=== PATIENT | male | born 1995 | race Caucasian/White ===

== ENCOUNTER 2019-08-13 07:47 | Inpatient (IN) | payer MEDICAID ==
[~2019-08-13] VITALS: Ht 162.6 cm; Wt 43.5 kg
--- NOTE | 2019-08-13 08:07 | NUR ---
Patient Came to [facility] EMS from skill facility c/c Seizure he is non verbal noted trach RA ,contracted bilateral upper and lower extremities ,suction as needed ,padded side rails ,
[2019-08-13 08:28] LABS: BASOPHILS # (AUTO) 0.1 /CMM (0.0-0.2); BASOPHILS % (AUTO) 0.3 % (0.0-2.0); EOSINOPHILS % (AUTO) 0.1 % (0.0-6.0); HEMATOCRIT 46 % (39-51); HEMOGLOBIN 15.4 g/dL (13.5-17.5); LYMPHOCYTES # (AUTO) 1.4 /CMM (0.8-4.8); MEAN CORPUSCULAR HGB CONC 34 g/dl (31.0-36.0); MEAN CORPUSCULAR VOLUME 94 fL (80-96); MONOCYTES # (AUTO) 0.6 /CMM (0.1-1.30); MONOCYTES % (AUTO) 2.6 % (2.0-12.0); NEUTROPHILS # (AUTO) 21.5 /CMM (1.8-8.9); PLATELET COUNT (AUTO) 620 /CMM (150-450); RED BLOOD CELL COUNT(AUTO) 4.87 MIL/uL (4.5-6.0); WHITE BLOOD COUNT (AUTO) 23.6 K/uL (4.3-11.0)
[2019-08-13] MEDS ORDERED: LORAZEPAM INJ 2 MG/ML VIAL IV ONE ×2 (08:30→11:00)
[2019-08-13] MEDS ORDERED: LORAZEPAM INJ 2 MG/ML VIAL ONE ×3 (08:30→12:12)
[2019-08-13 08:32] LABS: CALCIUM, SERUM 10.4 mg/dL (8.5-10.1); CREATININE 0.7 mg/dL (0.6-1.3); POTASSIUM 3.9 mmol/L (3.5-5.1)
--- NOTE | 2019-08-13 08:40 | NUR ---
Patient awake moaning noted agitation unable to do EKG MD aware order
--- NOTE | 2019-08-13 08:47 | NUR ---
Pt awake, nonverbal, remains on room air, given ativan IV push per order for agitation, pt remains on padded rails for seizure precaution, noted drooling, suctioned as needed.
--- NOTE | 2019-08-13 09:21 | NUR ---
Pt noted with gtube, placed secured dressing to prevent pulling out, noted gastric content. no seizure activity at this time.
[2019-08-13] MEDS ORDERED: IV NS 0.9% 1,000 ML BAG IV ONE ×2 (09:30→13:30)
--- NOTE | 2019-08-13 10:35 | NUR ---
Dr. Ramirez in the unit at this time, relayed to that patient has been tachy since he arrived, 140-160's. Dr. Ramirez with no new order at this time, and said continue to monitor. Will continue to monitor patient
--- NOTE | 2019-08-13 10:54 | NUR ---
Pt awake noted, right arm movement noted pulled out IV, pulled all monitors, and Dr. Bustamante made aware with orders
--- NOTE | 2019-08-13 11:59 | NUR ---
Patient pulled his heplock ,noted agitation MD aware ,vitals taken and filed HR 140 MD aware with order
[2019-08-13] MEDS ORDERED: LORAZEPAM INJ 2 MG/ML VIAL IM ONE (12:00)
--- NOTE | 2019-08-13 13:14 | NUR ---
Removed LAC heplock noted cath intact no edema ,no redness
--- NOTE | 2019-08-13 13:25 | NUR ---
CALLED CYNTHIA, BARBARA WOODY PAGED
[2019-08-13 13:28] LABS: ALBUMIN 4.4 g/dL (3.4-5.0); BILIRUBIN,TOTAL 0.1 mg/dL (0.2-1.0); TOTAL PROTEIN, SERUM 9.9 g/dL (6.4-8.2)
[2019-08-13] MEDS ORDERED: METO25TA6 GT (13:30)
[2019-08-13] MEDS ORDERED: CHOL100040 GT (13:30)
[2019-08-13] MEDS ORDERED: MAGN400O6 GT (13:30)
[2019-08-13] MEDS ORDERED: ACET-868 GT (13:30)
[2019-08-13] MEDS ORDERED: LOPE2CAP40 GT (13:30)
[2019-08-13] MEDS ORDERED: CALC1POW GT (13:30)
[2019-08-13] MEDS ORDERED: LEVE500T9 GT (13:30)
[2019-08-13] MEDS ORDERED: ONDA4TAB5 GT (13:30)
[2019-08-13] MEDS ORDERED: OXCA600T5 GT (13:30)
[2019-08-13] MEDS ORDERED: POTA20TA83 GT (13:30)
[2019-08-13] MEDS ORDERED: MOTRIN (13:30)
[2019-08-13] MEDS ORDERED: ERYT200S4 GT (13:42)
[2019-08-13] MEDS ORDERED: OMEP20TA5 GT (13:42)
[2019-08-13] MEDS ORDERED: NUT.237L63 GT (13:42)
[2019-08-13] MEDS ORDERED: IPRA0.2S9 IH (13:42)
[2019-08-13] MEDS ORDERED: BISA10SU61 RC (13:42)
[2019-08-13] MEDS ORDERED: BUDE0.5A4 IH (13:42)
[2019-08-13] MEDS ORDERED: ASCO500T10 GT (13:42)
[2019-08-13] MEDS ORDERED: HYDR-4384 GT (13:42)
[2019-08-13] MEDS ORDERED: ALBU2.5V38 IH ×2 (13:42)
[2019-08-13] MEDS ORDERED: METO-295 GT (13:42)
[2019-08-13] MEDS ORDERED: SACC250C GT (13:42)
--- NOTE | 2019-08-13 13:50 | NUR ---
Patient awake remaion Sinus Tach 120-130 patient agitaion noted ativan ,no Sz activity @ this time Dr. Bustamante made aware ofg HR
--- NOTE | 2019-08-13 14:11 | NUR ---
ROOM GIVEN 105
--- NOTE | 2019-08-13 14:24 | NUR ---
Patient awake non verbal ,no follow tract no zs activity noted WBC MD aware
[2019-08-13 14:29] LABS: BILIRUBIN,URINE Negative (NEGATIVE); BLOOD, URINE Trace-lysed Ery/uL (NEGATIVE); COLOR,URINE Yellow (YELLOW); KETONES,URINE Trace (NEGATIVE); LEUKOCYTE ESTERASE ,URINE Negative (NEGATIVE); NITRITE, URINE Negative (NEGATIVE); PH,URINE 7.5 (5.0-8.0); PROTEIN,URINE 100 mg/dl (NEGATIVE); UGLUCOSE Negative (NEGATIVE); UROBILINOGEN,URINE 0.2 EU/dL (0.2)
--- NOTE | 2019-08-13 14:34 | NUR ---
CALLED BARBARA WOODY
--- NOTE | 2019-08-13 14:37 | NUR ---
Patient repositioned x 2 and changed diaper x 3 noted redness to buttock ,[facility] report to Tray Blanchard Rn
--- NOTE | 2019-08-13 15:00 | NUR ---
HEAD BONE GRINDERRECRUITING MANAGER NOTES REPORT GIVEN BY CORINA SCHUSTER IN ER.RECEIVED PT FROM ER VIA GURNEY TO ROOM 105.PT HAS CEREBRAL PALSY,LOOKS AGITATED AND RESTLESS.PT IS COMBATIVE AND NONVERBAL,TRACH IS IN PLACE.ON TELE HR SI IS 170'S WITH SINUS TACHYCARDIA PT IS RESTLESS.ON ROOM AIR,TOLERATING WELL WITH O2 SATURATION IS 94%.NOTED WITH B/L LOWER EXTREMITIES AND LEFT UPPER EXTREMITY IS CONTRACTED ,REFUSED TO HAVE SKIN ASSESSMENT AND TAKE THE PICTURES.VITAL SIGNS CHECKED AND RECORDED.IV LINE IS ON RIGHT AC G22,SITE IS CLEAN/DRY/INTACT/NO INFILTRATION NOTED.SAFETY IS MAINTAINED AT ALL TIMES.BED IS IN LOW POSITION AND LOCKED,CALL LIGHT IS WITHIN REACH.PADDED SIDE RAILS.WILL CONTINUE TO MONITOR THE PT CLOSELY.
[2019-08-13 15:21] LABS: APPEARANCE,URINE SLIGHTLY HAZY (CLEAR); BACTERIA,URINE Rare /HPF (None Seen); SQUAMOUS EPITHELIAL CELL,UR Few /HPF (None Seen); URINE AMORPHOUS PHOSPHATES Moderate /HPF (None Seen)
[2019-08-13] MEDS ORDERED: LORAZEPAM INJ 2 MG/ML VIAL IV STA ×2 (15:24→15:37)
--- NOTE | 2019-08-13 15:25 | NUR ---
ESCROW REPRESENTATIVE NOTES PT NOTED WITH RESTLESS,COMBATIVE AND AGITATED.DNP BARBARA WOODY ORDERED IV ATIVAN 2MG STAT AND B/L SOFT WRIST RESTRAINTS.NEW ORDERS NOTED AND CARRIED OUT.
[2019-08-13 16:00] VITALS: BP 152/82
--- NOTE | 2019-08-13 16:04 | NUR ---
PANEL MACHINE OPERATOR NOTES PT IS CALM DOWN AND SLEEPING ON THE BED S/P IV ATIVAN GIVEN.
[2019-08-13] MEDS: VITAL AF 1.2 1,000 ML BOTTLE GT SCH ×2 (18:11→20:59)
[2019-08-13] MEDS ORDERED: FEE PK DOSING 1 MIN EA MC ONE (18:23)
[2019-08-13] MEDS ORDERED: BISACODYL SUPP (10 MG) 10 MG/SUPP.RECT SUPP.RECT RC PRN (18:30)
[2019-08-13] MEDS ORDERED: ALBUTEROL FS 2.5 MG/3 ML VIAL.NEB IH PRN (18:30)
[2019-08-13] MEDS ORDERED: ONDANSETRON HCL/PF 4 MG/2 ML VIAL IVP PRN (18:30)
[2019-08-13] MEDS ORDERED: MAGNESIUM HYDROXIDE 30 ML UDC GT PRN (18:30)
[2019-08-13] MEDS ORDERED: Z GUARD REMEDY 2 OZ OINT TP PRN (18:30)
[2019-08-13] MEDS: IV NS 0.9% 1,000 ML IV PRN (18:37)
[2019-08-13] MEDS: ENOXAPARIN SODIUM 40 MG/0.4 ML DISP.SYRIN SQ SCH (18:51)
--- NOTE | 2019-08-13 18:54 | NUR ---
CONSUMER RECRUITER CLOSING NOTES PT IS LYING ON BED.SLEEPING.ON G TUBE FEEDING FORMULA IS RUNNING,IV NS@75CC/HR IS RUNNING.PT TOLERATED WELL.HOB IS ELEVATED AT 45 DEGREE.ON ROOM AIR,TOLERATING WELL.RESPIRATION IS EVEN AND NONLABORED.IV LINE SI IN PLACE.NO SIGNIFICANT CHANGES NOTED IN THE SHIFT.WILL ENDORSE TO TRAFFIC OFFICER RN FOR MARCIA.
--- NOTE | 2019-08-13 19:25 | NUR ---
TELE/RN NOTES Patient received in bed, awake, restless, non-verbal, A/O x0. in no acute distress, breathing even and unlabored. no SOB noted. unable to assess pain levels. Patient on tele monitoring with Sinus tachy. IV site with no S/S of infection infiltration, running with fluids as ordered, G-tube in place, patent, with feeding as ordered, HOB elevated. Safety maintained, bed at the lowest locked position. Call light within reach. Will continue to monitor as per plan of care.
[2019-08-13 20:00] VITALS: BP 117/63
[2019-08-13] MEDS: LORAZEPAM INJ 2 MG/ML VIAL IV PRN (20:48)
[2019-08-13] MEDS: LEVETIRACETAM SOL (5 ML) 100 MG/ML UDC PO SCH (20:58)
[2019-08-13] MEDS: OXCARBAZEPINE 150 MG TABLET GT SCH (20:58)
[2019-08-13] MEDS: PIPERACILLIN /TAZOBACTAM 3.375 G in IV D5W 50 ML IV SCH (20:59)
[2019-08-13] MEDS: VANCOMYCIN 1.25 GM in IV D5W 250 ML IV SCH (20:59)
[2019-08-13] MEDS: IPRATROPIUM NEB FS 0.5 MG/2.5 ML AMPUL.NEB IH SCH (21:00)
[2019-08-14] VITALS: BP 123/84
--- NOTE | 2019-08-14 00:08 | NUR ---
Patient saturation noted 87% at this time, patient with Trach, on room air, suctioned patient, HOB elevated, called Dr. Ramirez at this time, left message, waiting for response
--- NOTE | 2019-08-14 00:12 | NUR ---
Dr. Ramirez called back at this time, with new order for continues cool aerosol and pulse ox. orders noted and carried out. Patient saturation 92% at this time. Will continue to monitor. other vitals BP 126/78, HR 141, R24, T97.8. Pain unable to assess
[2019-08-14] MEDS: ERYTHROMYCIN ETHYLSUCCINATE 200 MG/5 ML BOTTLE GT SCH ×4 (00:36→19:41)
[2019-08-14] MEDS: LORAZEPAM INJ 2 MG/ML VIAL IV PRN ×2 (01:53→12:05)
[2019-08-14] MEDS: PIPERACILLIN /TAZOBACTAM 3.375 G in IV D5W 50 ML IV SCH ×4 (02:16→21:38)
[2019-08-14] MEDS: VANCOMYCIN 1.25 GM in IV D5W 250 ML IV SCH ×3 (02:59→21:21)
[2019-08-14 04:00] VITALS: BP 129/73
[2019-08-14] MEDS: HYDROCODONE/APAP 5/325MG 1 EACH TABLET GT PRN (05:19)
[2019-08-14 06:32] LABS: BASOPHILS # (AUTO) 0.1 /CMM (0.0-0.2); BASOPHILS % (AUTO) 0.4 % (0.0-2.0); EOSINOPHILS % (AUTO) 0.1 % (0.0-6.0); HEMATOCRIT 39 % (39-51); HEMOGLOBIN 12.8 g/dL (13.5-17.5); LYMPHOCYTES # (AUTO) 2.7 /CMM (0.8-4.8); LYMPHOCYTES % (AUTO) 10.5 % (20.0-44.0); MEAN CORPUSCULAR HGB CONC 33 g/dl (31.0-36.0); MEAN CORPUSCULAR VOLUME 95 fL (80-96); MONOCYTES # (AUTO) 1.5 /CMM (0.1-1.30); MONOCYTES % (AUTO) 5.9 % (2.0-12.0); NEUTROPHILS # (AUTO) 21.2 /CMM (1.8-8.9); NEUTROPHILS % (AUTO) 83.1 % (43.0-81.0); PLATELET COUNT (AUTO) 473 /CMM (150-450); RED BLOOD CELL COUNT(AUTO) 4.13 MIL/uL (4.5-6.0); WHITE BLOOD COUNT (AUTO) 25.6 K/uL (4.3-11.0)
[2019-08-14 06:56] LABS: ALBUMIN 3.2 g/dL (3.4-5.0); BILIRUBIN,TOTAL 0.3 mg/dL (0.2-1.0); CALCIUM, SERUM 8.6 mg/dL (8.5-10.1); CREATININE 0.5 mg/dL (0.6-1.3); MAGNESIUM 1.9 mg/dL (1.8-2.4); PHOSPHORUS 2.2 mg/dL (2.5-4.9); TOTAL PROTEIN, SERUM 7.5 g/dL (6.4-8.2)
[2019-08-14 06:58] LABS: THYROID STIMULATING HORMONE 1.032 uIU/mL (0.358-3.74)
--- NOTE | 2019-08-14 07:10 | NUR ---
MILL WASHER OPENING NOTE: RECEIVED PATIENT IN BED. AWAKE, ALERT AND CONFUSED. NON COMPLIANCE WITH CARE BY CONTINUOUSLY TRYING TO REMOVE IV LINES AND TRACH APPARENT. WITH TRACH TUBE SHILEY 6 NO CUFF WITH COOL AEROSOL, TOLERATING WELL. NO SOB, NOT IN DISTRESS. ON FORESTRY TECHNICIAN AND SINUS TACHYCARDIA APPARENT WITH HEART RATE FROM IN THE 140S, MD IS AWARE OF PATIENT'S BASELINE. IV SITE ON LEFT AC AND PATENT. SITE CLEAN, DRY AND INTACT. NO PAIN NOTED. CALL LIGHT IN REACH, SIDE RAILS UP, BED LOCKED, LOW AND AT SEMI-WRIGHT'S POSITION. WILL CONTINUE TO MONITOR. Addendum: 08/14/19 at 2031 by SILVIA PEREZ RN PATIENT IS ON RESTRAINT
--- NOTE | 2019-08-14 07:12 | NUR ---
TELE/RN NOTES Patient remained in bed, awake, restless, non-verbal, A/O x0. in no acute distress, breathing even and unlabored. no SOB noted. unable to assess pain levels. Patient on tele monitoring with Sinus tachy. IV site with no S/S of infection infiltration, running with fluids as ordered, G-tube in place, patent, with feeding as ordered, HOB elevated. All due meds given as ordered, tolerated well. Safety maintained, bed at the lowest locked position. Call light within reach. Will endorse to AM shift nurse for MARCIA.
[2019-08-14] MEDS: IPRATROPIUM NEB FS 0.5 MG/2.5 ML AMPUL.NEB IH SCH ×2 (07:55→19:55)
[2019-08-14 08:00] VITALS: BP 129/76
[2019-08-14] MEDS: BUDESONIDE RESPULE INH 0.5 MG/2 ML AMPUL.NEB IH SCH ×2 (08:06→19:55)
[2019-08-14] MEDS: LACTOBACILLUS RHAMNOSUS GG 1 EACH CAP.SPRINK GT SCH ×2 (08:55→18:34)
[2019-08-14] MEDS: LEVETIRACETAM SOL (5 ML) 100 MG/ML UDC PO SCH ×2 (08:55→22:35)
[2019-08-14] MEDS: OXCARBAZEPINE 150 MG TABLET GT SCH ×4 (08:55→22:36)
[2019-08-14] MEDS: METOCLOPRAMIDE HCL 10 MG TABLET GT SCH ×3 (08:55→18:35)
[2019-08-14] MEDS: ASCORBIC ACID 500 MG TABLET GT SCH (08:55)
[2019-08-14] MEDS: METOPROLOL TARTRATE 25 MG TABLET GT SCH ×2 (08:57→18:35)
[2019-08-14] MEDS: VITAL AF 1.2 1,000 ML BOTTLE GT SCH ×3 (08:59→18:36)
[2019-08-14 10:15] LABS: ABG BASE EXCESS -1.5 mmol/L; ABG OXYGEN SATURATION 97.4 % (92.0-98.5); ABG PCO2 41.4 mmHg (35.0-45.0); ABG PH 7.375 (7.350-7.450); ABG PO2 106.4 mmHg (75.0-100.0); AaDO2 131.2 mmHg; COHb 0.7 % (0.5-1.5); MetHb 0.3 % (0.0-1.5); O2Hb 96.4 % (94.0-97.0); SITE, ABG Right Radial
[2019-08-14] MEDS ORDERED: NEUTRA PHOS 1 POWD.PACKET GT ONE (11:30)
[2019-08-14] MEDS: POTASSIUM CL. PREMIX PERIPHER. 50 ML IV SCH ×7 (11:50→23:49)
[2019-08-14 12:00] VITALS: BP 114/69
--- NOTE | 2019-08-14 13:00 | NUR ---
[facility] [place] NOTE: PATIENT'S TUBE FEEDING ORDER FREQUENCY CHANGED TO 300MLS EVERY 6HRS PER END POLISHER'S RECOMMENDATIONS.
[2019-08-14 16:00] VITALS: BP 139/71
--- NOTE | 2019-08-14 16:46 | NUR ---
Patient is trach & GTube dependent. Has hx of cerebral palsy. Resides at [facility] [phone]. He is bed and chair bound, totally dependent with adl's. Bedhold x7days, current dc plan is to return to SNF. Addendum: 08/14/19 at 1647 by DARSHAN MICHAEL RN Amended: Links added.
--- NOTE | 2019-08-14 19:15 | NUR ---
REFERENCE SERVICES HEAD CLOSING NOTE: PATIENT IN BED. ASLEEP. NON COMPLIANCE WITH CARE BY CONTINUOUSLY TRYING TO REMOVE IV LINES AND TRACH MANIFESTED ON SHIFT. RESTRAINT WAS RENEWED. TOLERATING CURRENT OXYGENTATION SETTINGS, NO SOB, NOT IN DISTRESS. ON LABEL SEWER WITH SINUS TACHYCARDIA IN THE 120S, MD IS AWARE OF PATIENT'S BASELINE. IV SITE ON LEFT AC AND PATENT. SITE CLEAN, DRY AND INTACT. NO PAIN NOTED. 5 DOSES OF KCL 10MEQ/50CC TO BE STILL GIVEN, WILL INFORM ONCOMING NURSE. CALL LIGHT IN REACH, SIDE RAILS UP, BED LOCKED, LOW AND AT SEMI-WRIGHT'S POSITION. ENDORSED TO ONCOMING NURSE FOR MARCIA.
--- NOTE | 2019-08-14 19:35 | NUR ---
RN OPENING NOTES RECEIVED REPORT FROM [facility] COR[facility] VEGA. FOUND Pt RESTING IN BED, NO S/S OF ACUTE DISTRESS OR SOB NOTED. Pt IS NONVERBAL WITH CEREBRAL PALSY. PER REPORT Pt IS ABLE TO SIT UP AND PULL OUT THE OXYGEN TUBING FOR HIS T-PIECE. ON ILEANA SOFT WRIST RESTRAINTS. IV ACCESS ON LAC ML. ON TELE MONITOR, WITH TELE READING ST 125 HIS BASELINE. PER REPORT Pt HAS 6 BAGS OF KCL ORDERED, ONLY 1 BAG WAS GIVEN SO FAR. WILL CONTINUE WITH THE REMAINING 5 BAGS OF KCL. SAFETY MEASURES IN PLACE. BED LOW, LOCKED, HOB ELEVATED, SIDE RAILS UP, CALL LIGHT AND BEDSIDE TABLE WITHIN REACH. WILL CONTINUE TO MONITOR Pt's CONDITION AND SAFETY THROUGHOUT THE NIGHT.
[2019-08-14 20:00] VITALS: BP 130/79
[2019-08-14] MEDS: ENOXAPARIN SODIUM 40 MG/0.4 ML DISP.SYRIN SQ SCH (22:40)
[2019-08-15] VITALS: BP 115/89
[2019-08-15] MEDS: LORAZEPAM INJ 2 MG/ML VIAL IV PRN (00:45)
[2019-08-15] MEDS: ERYTHROMYCIN ETHYLSUCCINATE 200 MG/5 ML BOTTLE GT SCH ×3 (00:57→12:38)
[2019-08-15] MEDS: VITAL AF 1.2 1,000 ML BOTTLE GT PRN (02:08)
[2019-08-15] MEDS: PIPERACILLIN /TAZOBACTAM 3.375 G in IV D5W 50 ML IV SCH ×4 (02:15→22:04)
[2019-08-15 04:00] VITALS: BP_SYST 120; BP_DIAS 70; BP_DIAS 78
[2019-08-15] MEDS: VANCOMYCIN 1.25 GM in IV D5W 250 ML IV SCH ×3 (04:08→20:09)
--- NOTE | 2019-08-15 06:28 | NUR ---
RN NOTES ERYTHROMYCIN 200MG/5ML SYRINGE NOT IN Pt's CASSETTE. WILL CALL PHARMACY TO BRING IT UP AND REQUEST THEM TO RESCHEDULE THE TIME ACCORDINGLY.
--- NOTE | 2019-08-15 07:15 | NUR ---
MASK DESIGN ENGINEER OPENING NOTE: RECEIVED PATIENT IN BED AND ASLEEP. NON COMPLIANCE WITH CARE BY CONTINUOUSLY TRYING TO REMOVE IV LINES AND TRACH REPORTED BY OUTGOING NURSE. WITH TRACH TUBE SHILEY 6 NO CUFF WITH COOL AEROSOL, TOLERATING WELL. NO SOB, NOT IN DISTRESS. ON CUBING MACHINE TENDER AND SINUS TACHYCARDIA APPARENT WITH HEART RATE FROM IN THE 120S, MD IS AWARE OF PATIENT'S BASELINE. IV SITE ON LEFT AC MIDLINE AND PATENT. SITE CLEAN, DRY AND INTACT. NO PAIN NOTED. CALL LIGHT IN REACH, SIDE RAILS UP, BED LOCKED, LOW AND AT SEMI-WRIGHT'S POSITION. WILL CONTINUE TO MONITOR.
--- NOTE | 2019-08-15 07:34 | NUR ---
RN NOTES CALLED PHARMACY TO INFORM THEM THAT Pt DID NOT HAVE THE ERYTHROMYCIN 5ML SYRINGE IN THE Pt's CASSETTE. PHARMACY WILL BRING THEM UP. WILL ENDORSE TO DAYSHIFT RN.
--- NOTE | 2019-08-15 07:40 | NUR ---
RN CLOSING NOTES NO SIGNIFICANT CHANGES IN Pt's CONDITION. ALL NEEDS MET AND ATTENDED TO. Pt IS AWAKE, RESTING IN BED. NO S/S OF ACUTE DISTRESS OR SOB NOTED DURING THE NIGHT. SAFETY MEASURES IN PLACE. WILL ENDORSE TO DAYSHIFT RN FOR Pt's MARCIA.
[2019-08-15 08:00] VITALS: BP_SYST 130; BP_SYST 166; BP_DIAS 107; BP_DIAS 78
[2019-08-15] MEDS: BUDESONIDE RESPULE INH 0.5 MG/2 ML AMPUL.NEB IH SCH ×2 (08:05→19:56)
[2019-08-15] MEDS: IPRATROPIUM NEB FS 0.5 MG/2.5 ML AMPUL.NEB IH SCH ×2 (08:05→19:56)
[2019-08-15] MEDS: LEVETIRACETAM SOL (5 ML) 100 MG/ML UDC PO SCH ×2 (08:45→22:04)
[2019-08-15] MEDS: LACTOBACILLUS RHAMNOSUS GG 1 EACH CAP.SPRINK GT SCH ×2 (08:45→16:43)
[2019-08-15] MEDS: ASCORBIC ACID 500 MG TABLET GT SCH (08:46)
[2019-08-15] MEDS: METOCLOPRAMIDE HCL 10 MG TABLET GT SCH ×3 (08:46→16:49)
[2019-08-15] MEDS: METOPROLOL TARTRATE 25 MG TABLET GT SCH ×2 (08:46→16:47)
[2019-08-15] MEDS: OXCARBAZEPINE 150 MG TABLET GT SCH ×4 (08:46→22:04)
[2019-08-15 08:49] LABS: CREATININE 0.7 mg/dL (0.6-1.3); POTASSIUM 3.3 mmol/L (3.5-5.1)
[2019-08-15 09:34] LABS: PHOSPHORUS 2.3 mg/dL (2.5-4.9)
[2019-08-15] MEDS ORDERED: POTASSIUM CHLORIDE 20 MEQ TAB.PRT.SR PO SCH (11:30)
[2019-08-15 12:00] VITALS: BP 120/74
[2019-08-15] MEDS ORDERED: NEUTRA PHOS 1 POWD.PACKET GT ONE (13:00)
[2019-08-15 16:00] VITALS: BP_SYST 101; BP_SYST 111; BP_DIAS 62
--- NOTE | 2019-08-15 19:10 | NUR ---
PORCELAIN FINISH SPRAYER CLOSING NOTE: RECEIVED PATIENT IN BED AND ASLEEP. NON COMPLIANCE WITH CARE BY CONTINUOUSLY TRYING TO REMOVE IV LINES AND TRACH SEEN IN SHIFT, STILL WITH ORDERED RESTRAINTS. WITH TRACH TUBE SHILEY 6 NO CUFF WITH COOL AEROSOL, TOLERATING WELL. NO SOB, NOT IN DISTRESS. ON HIGH SCHOOL AGRICULTURE TEACHER AND SINUS TACHYCARDIA APPARENT WITH HEART RATE FROM IN THE 120S, MD IS AWARE OF PATIENT'S BASELINE. IV SITE ON LEFT AC MIDLINE AND PATENT. SITE CLEAN, DRY AND INTACT. NO PAIN NOTED. CALL LIGHT IN REACH, SIDE RAILS UP, BED LOCKED, LOW AND AT SEMI-WRIGHT'S POSITION. BARBARA WOODY DNP INFORMED OF PATIENT'S RECTAL TEMPERATURE OF 99.1. WILL ENDORSE TO NIGHT NURSE FOR CONTINUITY OF CARE.
[2019-08-15] MEDS: ERYTHROMYCIN ETHYLSUCCINATE 200 MG/5 ML SUSPENSION GT SCH ×2 (19:24→23:59)
--- NOTE | 2019-08-15 19:49 | NUR ---
MS/RN RECEIVE PATIENT WITH EYES CLOSED, NON VERBALLY RESPONSIVE, T PIECE TO WALL OXYGEN, N0 DISTRESS NOTED, TUBE FEEDING INFUSING, HOB ELEVATED, WILL MONITOR.
[2019-08-15 20:00] VITALS: BP 124/74
[2019-08-15] MEDS ORDERED: IBUPROFEN 200 MG TABLET PO PRN (20:00)
[2019-08-15] MEDS: ENOXAPARIN SODIUM 40 MG/0.4 ML DISP.SYRIN SQ SCH (22:05)
[2019-08-16] VITALS: BP 121/68
[2019-08-16] MEDS: PIPERACILLIN /TAZOBACTAM 3.375 G in IV D5W 50 ML IV SCH ×2 (03:10→08:27)
[2019-08-16] MEDS: VITAL AF 1.2 1,000 ML BOTTLE GT PRN (03:24)
[2019-08-16] MEDS: VANCOMYCIN 1.25 GM in IV D5W 250 ML IV SCH (04:05)
[2019-08-16 04:26] VITALS: BP 121/72
[2019-08-16] MEDS: ERYTHROMYCIN ETHYLSUCCINATE 200 MG/5 ML SUSPENSION GT SCH ×4 (06:28→23:48)
--- NOTE | 2019-08-16 06:35 | NUR ---
TELE/RN PATIENT APPEAR SLEEPING AT THIS TIME, APPEAR COMFORTABLE, NO DISTRESS NOTED, HOB ELEVATED, ON AND OFF SLEEP NOTED THE WHOLE SHIFT. ALL NEEDS ATTENDED AT THIS TIME, WILL CONTINUE TO MONITOR.
[2019-08-16 07:17] LABS: BASOPHILS # (AUTO) 0.1 /CMM (0.0-0.2); BASOPHILS % (AUTO) 0.5 % (0.0-2.0); EOSINOPHILS % (AUTO) 0.1 % (0.0-6.0); HEMATOCRIT 37 % (39-51); HEMOGLOBIN 12.2 g/dL (13.5-17.5); LYMPHOCYTES # (AUTO) 2.1 /CMM (0.8-4.8); LYMPHOCYTES % (AUTO) 11.8 % (20.0-44.0); MEAN CORPUSCULAR HGB CONC 33 g/dl (31.0-36.0); MEAN CORPUSCULAR VOLUME 95 fL (80-96); MONOCYTES # (AUTO) 1.2 /CMM (0.1-1.30); MONOCYTES % (AUTO) 6.7 % (2.0-12.0); NEUTROPHILS # (AUTO) 14.2 /CMM (1.8-8.9); NEUTROPHILS % (AUTO) 80.9 % (43.0-81.0); PLATELET COUNT (AUTO) 360 /CMM (150-450); RED BLOOD CELL COUNT(AUTO) 3.95 MIL/uL (4.5-6.0); WHITE BLOOD COUNT (AUTO) 17.6 K/uL (4.3-11.0)
--- NOTE | 2019-08-16 07:21 | NUR ---
RN AM NOTE PATIENT AWAKE BUT NON VERBAL. SINUS TACHY ON MONITOR MD AWARE. GTUBE PATENT AND FLUSHING WELL NO RESIDUAL AT THIS TIME. SYLVIA MIDLINE PATENT AND FLUSHING WELL. URINE BLOOD AND SPUTUM CULTRE DONE AND PENDING PER MD ORDER. SAFETY MEASURES IN PLACE FOR HISTORY OF SEIZURE ACTIVITIES. NO INCIDENTS OF SEIZURE REPORTED BY NIGHT NURSE. SIDE RAILS UP PADS ON BED IN LOW POSITION. RESTRRAINS IN PLACE DUE TO PULLING AT CORDS AND TUBES, ONE ARM ONLY. PULSES AND PERFUSION CHECKED AND PRESENT. ALL NEEDS MET.
[2019-08-16] MEDS: BUDESONIDE RESPULE INH 0.5 MG/2 ML AMPUL.NEB IH SCH ×2 (07:33→19:02)
[2019-08-16] MEDS: IPRATROPIUM NEB FS 0.5 MG/2.5 ML AMPUL.NEB IH SCH ×2 (07:33→19:02)
[2019-08-16 07:45] LABS: CALCIUM, SERUM 8.2 mg/dL (8.5-10.1); CREATININE 2.2 mg/dL (0.6-1.3); MAGNESIUM 1.7 mg/dL (1.8-2.4); PHOSPHORUS 3.6 mg/dL (2.5-4.9); POTASSIUM 3.4 mmol/L (3.5-5.1)
[2019-08-16 08:00] VITALS: BP 125/69
[2019-08-16] MEDS: OXCARBAZEPINE 150 MG TABLET GT SCH ×4 (08:28→21:37)
[2019-08-16] MEDS: ASCORBIC ACID 500 MG TABLET GT SCH (08:28)
[2019-08-16] MEDS: LEVETIRACETAM SOL (5 ML) 100 MG/ML UDC PO SCH ×2 (08:28→21:37)
[2019-08-16] MEDS: LACTOBACILLUS RHAMNOSUS GG 1 EACH CAP.SPRINK GT SCH ×2 (08:28→17:18)
[2019-08-16] MEDS: METOCLOPRAMIDE HCL 10 MG TABLET GT SCH ×3 (08:28→17:18)
[2019-08-16] MEDS: METOPROLOL TARTRATE 25 MG TABLET GT SCH ×2 (08:30→17:19)
--- NOTE | 2019-08-16 10:15 | NUR ---
RN NOTE PATIENT WAS TRANSFERED TO ANOTHER FLOOR NURSE. RN HERB. WILL CONTINUE CARE, GAVE SHIFT REPORT NO CHANGES.
--- NOTE | 2019-08-16 10:30 | NUR ---
WOOD HEEL CEMENTER NOTES RECEIVED PT REPORT FROM [facility] FONTAINE IN [place].RECEIVED PT LYING ON BED WITH B/L WRIST RESTRAINTS PRESENT,ON TRACH S#6 WITH COOL AEROSOL OF FIO2 40%.NO SOB AND ACUTE DISTRESS NOTED.G TUBE IS IN PLACE WITH VITAL 1.2 @50MLS/HR IS RUNNING,MINIMAL GASTRIC RESIDUAL NOTED.IV FLUID NS @75CC/HR IS RUNNING.IN RIGHT UPPER ARM MIDLINE.IV SITE IS CLEAN,DRY AND INTACT.NO INFILTRATION NOTED.SAFETY IS MAINTAINED AT ALL TIMES,CALL LIGHT IS WITHIN REACH.BED IS IN LOW POSITION AND LOCKED.WILL CONTINUE TO MONITOR THE PT CLOSELY.
[2019-08-16 12:00] VITALS: BP 120/72
[2019-08-16] MEDS: IV NS 0.9% 1,000 ML IV PRN (12:03)
[2019-08-16] MEDS ORDERED: Magnesium 1GM/D5W 100ML PREMIX 100 ML IV SCH (12:09)
[2019-08-16] MEDS: LORAZEPAM INJ 2 MG/ML VIAL IV PRN (12:14)
[2019-08-16] MEDS ORDERED: POTASSIUM CHLORIDE 10 MEQ TABLET.SA PO SCH (12:30)
--- NOTE | 2019-08-16 12:48 | NUR ---
PLANT RELIABILITY ENGINEER NOTES TAB POTASSIUM DIDN'T ADMINISTER PT HAS G TUBE AND CHANGED TO IV POTASSIUM BY DR.STACY JIMENEZ,
[2019-08-16] MEDS ORDERED: POTASSIUM CL. PREMIX PERIPHER. 50 ML IV SCH (13:00)
[2019-08-16] MEDS ORDERED: VANCOMYCIN 0.75 GM in IV D5W 250 ML IV SCH (13:00)
[2019-08-16] MEDS ORDERED: IV NS 0.9% 1,000 ML IV ONE (15:00)
[2019-08-16 16:00] VITALS: BP 118/68
[2019-08-16] MEDS: ZOSYN IVPB 2.25 G in IV D5W 50ml IV SCH ×2 (17:19→23:48)
--- NOTE | 2019-08-16 18:40 | NUR ---
DEBURR OPERATOR CLOSING NOTES PT IS LYING ON BED WITH RIGHT WRIST RESTRAINT,SLEEPING.WITH G TUBE AND FEEDING IS CLAMPED NOW.RESPIRATION IS EVEN AND NONLABORED,NO SIGNIFICANT CHANGES NOTED IN THE SHIFT.WILL ENDORSE TO ALMOND ROASTER RN FOR MARCIA.
--- NOTE | 2019-08-16 19:10 | NUR ---
AUTOMATIC GLUING MACHINE OPERATOR NOTES RECEIVED PT PT IN BED WITH R WRIST RESTRAINT PRESENT. RESPIRATIONS EVEN AND UNLABORED WITH NO S/S OF ACUTE DISTRESS OR SOB NOTED. PT WITH TRACH S#6 WITH COOL AEROSOL OF FIO2 40%. PT WITH G TUBE IN PLACE. PT WITH IV FLUID NS @75CC/HR IS RUNNING ON RIGHT UPPER ARM MIDLINE. SAFETY MEASURES IN PLACE WITH BED IN LOWEST LOCKED POSITION WITH SIDE RAILS UP X2. CALL LIGHT WITHIN REACH. WILL CONTINUE TO MONITOR.
[2019-08-16 20:00] VITALS: BP 135/82
[2019-08-16] MEDS: ENOXAPARIN SODIUM 40 MG/0.4 ML DISP.SYRIN SQ SCH (21:38)
[2019-08-17] VITALS (7 sets, daily range): BP systolic 103–129; BP diastolic 54–81
[2019-08-17] MEDS: LORAZEPAM INJ 2 MG/ML VIAL IV PRN (02:31)
--- NOTE | 2019-08-17 04:15 | NUR ---
MS ARRIAGA NOTES PT NOTED WITH ELEVATED HR. MD BARAHONA, AWAITING CALL BACK. Addendum: 08/17/19 at 0552 by ANTELMO MOORE RN RAVI PÉREZ
--- NOTE | 2019-08-17 05:50 | NUR ---
PHOTOVOLTAIC INSTALLATION TECHNICIAN NOTES PT NOTED WITH ELEVATED HR AND TEMP. MD PAGED AND MADE AWARE. CHARGE NURSE MADE AWARE. COOLING MEASURES STARTED. NO NEW ORDERS FROM MD EXCEPT TO CONTINUE TO MONITOR.
[2019-08-17] MEDS: ERYTHROMYCIN ETHYLSUCCINATE 200 MG/5 ML SUSPENSION GT SCH ×3 (06:15→18:20)
[2019-08-17] MEDS: ZOSYN IVPB 2.25 G in IV D5W 50ml IV SCH ×3 (06:15→21:15)
[2019-08-17] MEDS: IV NS 0.9% 1,000 ML IV PRN ×2 (06:21→21:16)
[2019-08-17] MEDS: ACETAMINOPHEN 325 MG TABLET PO PRN ×2 (06:33→18:16)
--- NOTE | 2019-08-17 06:41 | NUR ---
DISHWASHER PREPARER NOTES PT NOTED WITH ELEVATED TEMP. CHARGE NURSE MADE AWARE. TYLENOL, COLD BATH, AND COOLING MEASURES GIVEN. WILL CONTINUE TO MONITOR.
--- NOTE | 2019-08-17 07:10 | NUR ---
STRUCTURAL DRAFTER OPENING NOTE: RECEIVED PATIENT IN BED. ASLEEP AND APPEARS RELAXED. STILL ON RESTRAINTS BEHAVIOR OF PULLING OUT LINES STILL APPARENT. WITH TRACH TUBE SHILEY 6 NO CUFF WITH COOL AEROSOL, TOLERATING WELL. NO SOB, NOT IN DISTRESS. ON FIRE CODE INSPECTOR AND SINUS TACHYCARDIA APPARENT WITH HEART RATE IN THE 130S, MD IS AWARE OF PATIENT'S BASELINE. IV SITE ON LEFT AC AND PATENT. SITE CLEAN, DRY AND INTACT. FEVER NOTED FROM PRIOR SHIFT, MD WAS NOTIFIED. CONTINUE WITH COOLING MEASURES FOR PATIENT. NO PAIN NOTED. CALL LIGHT IN REACH, SIDE RAILS UP, BED LOCKED, LOW AND AT SEMI-WRIGHT'S POSITION. WILL CONTINUE TO MONITOR.
--- NOTE | 2019-08-17 07:20 | NUR ---
AUTO GLASS WORKER NOTES PT PT IN BED WITH R WRIST RESTRAINT PRESENT. RESPIRATIONS EVEN AND UNLABORED WITH NO S/S OF ACUTE DISTRESS OR SOB NOTED THROUGHOUT SHIFT. PT KEPT CLEAN, DRY, AND COMFORTABLE. PT TURNED Q2 HOURS THROUGHOUT SHIFT. PT WITH TRACH S#6 WITH COOL AEROSOL OF FIO2 40%. PT WITH G TUBE IN PLACE. PT STILL NOTED WITH TEMP. CHARGE NURSE AWARE. PT WITH IV FLUID NS @75CC/HR IS RUNNING ON RIGHT UPPER ARM MIDLINE. SAFETY MEASURES IN PLACE WITH BED IN LOWEST LOCKED POSITION WITH SIDE RAILS UP X2. CALL LIGHT WITHIN REACH. WILL ENDORSE TO ONCOMING NURSE FOR MARCIA.
[2019-08-17 07:23] LABS: BASOPHILS # (AUTO) 0.1 /CMM (0.0-0.2); BASOPHILS % (AUTO) 0.6 % (0.0-2.0); EOSINOPHILS % (AUTO) 0.5 % (0.0-6.0); HEMATOCRIT 39 % (39-51); HEMOGLOBIN 12.8 g/dL (13.5-17.5); LYMPHOCYTES # (AUTO) 1.7 /CMM (0.8-4.8); LYMPHOCYTES % (AUTO) 10.8 % (20.0-44.0); MEAN CORPUSCULAR HGB CONC 33 g/dl (31.0-36.0); MEAN CORPUSCULAR VOLUME 95 fL (80-96); MONOCYTES # (AUTO) 1.1 /CMM (0.1-1.30); MONOCYTES % (AUTO) 6.9 % (2.0-12.0); NEUTROPHILS # (AUTO) 12.7 /CMM (1.8-8.9); NEUTROPHILS % (AUTO) 81.2 % (43.0-81.0); PLATELET COUNT (AUTO) 375 /CMM (150-450); RED BLOOD CELL COUNT(AUTO) 4.12 MIL/uL (4.5-6.0); WHITE BLOOD COUNT (AUTO) 15.6 K/uL (4.3-11.0)
[2019-08-17 07:29] LABS: CALCIUM, SERUM 8.4 mg/dL (8.5-10.1); CREATININE 3.3 mg/dL (0.6-1.3); MAGNESIUM 2.1 mg/dL (1.8-2.4); PHOSPHORUS 4.4 mg/dL (2.5-4.9); POTASSIUM 4.1 mmol/L (3.5-5.1)
[2019-08-17] MEDS: LEVETIRACETAM SOL (5 ML) 100 MG/ML UDC PO SCH ×2 (08:21→21:15)
[2019-08-17] MEDS: METOCLOPRAMIDE HCL 10 MG TABLET GT SCH ×3 (08:22→18:16)
[2019-08-17] MEDS: ASCORBIC ACID 500 MG TABLET GT SCH (08:22)
[2019-08-17] MEDS: METOPROLOL TARTRATE 25 MG TABLET GT SCH ×2 (08:22→18:16)
[2019-08-17] MEDS: LACTOBACILLUS RHAMNOSUS GG 1 EACH CAP.SPRINK GT SCH ×2 (08:22→18:15)
[2019-08-17] MEDS: OXCARBAZEPINE 150 MG TABLET GT SCH ×4 (08:22→21:15)
[2019-08-17] MEDS: BUDESONIDE RESPULE INH 0.5 MG/2 ML AMPUL.NEB IH SCH ×2 (08:31→21:35)
[2019-08-17] MEDS: IPRATROPIUM NEB FS 0.5 MG/2.5 ML AMPUL.NEB IH SCH ×2 (08:31→21:35)
--- NOTE | 2019-08-17 19:30 | NUR ---
DENTAL TECHNOLOGY ADVISOR NOTE: RECEIVED PT ON BED OBTUNDED WITH NO APPARENT DISTRESS NOTED. NO FACIAL GRIMACING OR ANY SIGNS OF PAIN NOTED. ON COOL AEROSOL, ABLE TO TOLERATE WELL, NO SOB NOTED. SATURATING WELL. SINUS TACHY ON TELE MONITOR HR 108 BPM. RIGHT UPPER ARM MIDLINE INTACT AND PATENT, IVF INFUSING WELL. KEPT CLEAN, DRY AND COMFORTABLE. SAFETY AND FALL PRECAUTIONS OBSERVED AND MAINTAINED. WILL CONTINUE TO MONITOR PT.
--- NOTE | 2019-08-17 19:30 | NUR ---
MARRIAGE AND FAMILY THERAPIST CLOSING NOTE: PATIENT IN BED. ASLEEP AND APPEARS RELAXED. STILL ON RESTRAINTS BEHAVIOR OF PULLING OUT LINES STILL APPARENT. WITH TRACH TUBE SHILEY 6 NO CUFF IN T-TUBE, TOLERATING WELL. NO SOB, NOT IN DISTRESS. ON BLACK MILL OPERATOR AND SINUS TACHYCARDIA WITH HEART RATE IN THE 110S, RECTAL TEMPERATURE TAKEN WAS 100.1, COOLING MEASURES AND TYLENOL 650MG WAS GIVEN. MD IS AWARE OF PATIENT'S BASELINE. MIDLINE IV SITE ON LEFT AC IS PATENT. NS @ 75CC/HR INFUSING WELL. SITE CLEAN, DRY AND INTACT. NO PAIN NOTED. CALL LIGHT IN REACH, SIDE RAILS UP, BED LOCKED, LOW AND HOB >40 POSITION. WILL ENDORSE TO ONCOMING SHIFT FOR MARCIA.
[2019-08-17] MEDS: ENOXAPARIN SODIUM 40 MG/0.4 ML DISP.SYRIN SQ SCH (21:16)
[2019-08-18] VITALS: BP 120/53
[2019-08-18] MEDS: ERYTHROMYCIN ETHYLSUCCINATE 200 MG/5 ML SUSPENSION GT SCH ×5 (01:10→23:42)
[2019-08-18 04:00] VITALS: BP 145/76
[2019-08-18] MEDS: VITAL AF 1.2 1,000 ML BOTTLE GT PRN ×4 (05:22→23:49)
[2019-08-18] MEDS: ZOSYN IVPB 2.25 G in IV D5W 50ml IV SCH ×2 (05:22→12:45)
[2019-08-18] MEDS: ACETAMINOPHEN 325 MG TABLET PO PRN (05:47)
[2019-08-18 06:27] LABS: BASOPHILS # (AUTO) 0.1 /CMM (0.0-0.2); BASOPHILS % (AUTO) 0.4 % (0.0-2.0); EOSINOPHILS % (AUTO) 0.1 % (0.0-6.0); HEMATOCRIT 34 % (39-51); HEMOGLOBIN 11.2 g/dL (13.5-17.5); LYMPHOCYTES # (AUTO) 0.9 /CMM (0.8-4.8); LYMPHOCYTES % (AUTO) 5.7 % (20.0-44.0); MEAN CORPUSCULAR HGB CONC 33 g/dl (31.0-36.0); MEAN CORPUSCULAR VOLUME 95 fL (80-96); MONOCYTES # (AUTO) 0.7 /CMM (0.1-1.30); MONOCYTES % (AUTO) 4.5 % (2.0-12.0); NEUTROPHILS # (AUTO) 13.9 /CMM (1.8-8.9); NEUTROPHILS % (AUTO) 89.3 % (43.0-81.0); PLATELET COUNT (AUTO) 362 /CMM (150-450); RED BLOOD CELL COUNT(AUTO) 3.63 MIL/uL (4.5-6.0); WHITE BLOOD COUNT (AUTO) 15.6 K/uL (4.3-11.0)
[2019-08-18 06:40] LABS: CALCIUM, SERUM 7.6 mg/dL (8.5-10.1); CREATININE 3.6 mg/dL (0.6-1.3); MAGNESIUM 1.9 mg/dL (1.8-2.4); PHOSPHORUS 3.2 mg/dL (2.5-4.9); POTASSIUM 3.6 mmol/L (3.5-5.1)
--- NOTE | 2019-08-18 07:10 | NUR ---
RN INITIAL NOTE PATIENT IN BED, AWAKE, NON VERBAL. OBTUNDED. HAS A RIGHT HAND MITTEN. ON SHILEY #6 ON COOL AEROSOL SATING WELL AT 95%. ON TELE MONITOR, ST AT 120. ON GTF WITH VITAL AF AT 300 ML/Q6HRS. HAS A RIGHT UA MIDLINE WITH NS AT 75 ML/HR. NO SIGNS OF ANY PAIN NOR SOB AT THIS TIME. BED LOCKED AND IN LOWEST POSITION. WILL CONTINUE TO MONITOR
--- NOTE | 2019-08-18 07:23 | NUR ---
CIDER MAKER NOTE: NO CHANGES NOTED THROUGHOUT THE SHIFT. NO FACIAL GRIMACING OR ANY SIGNS OF PAIN NOTED. ON COOL AEROSOL, NO SOB NOTED. SINUS TACHY ON TELE MONITOR HR 127 BPM. GT INTACT AND PATENT, NO RESIDUAL NOTED AT THIS TIME. KEPT CLEAN, DRY AND COMFORTABLE. SAFETY AND FALL PRECAUTIONS OBSERVED AND MAINTAINED. WILL ENDORSE TO DAY SHIFT RN FOR CONTINUITY OF CARE
[2019-08-18] MEDS: IPRATROPIUM NEB FS 0.5 MG/2.5 ML AMPUL.NEB IH SCH ×2 (07:52→20:12)
[2019-08-18] MEDS: BUDESONIDE RESPULE INH 0.5 MG/2 ML AMPUL.NEB IH SCH ×2 (07:53→20:12)
[2019-08-18 08:00] VITALS: BP 141/68
[2019-08-18] MEDS: LEVETIRACETAM SOL (5 ML) 100 MG/ML UDC PO SCH ×2 (08:09→21:13)
[2019-08-18] MEDS: LACTOBACILLUS RHAMNOSUS GG 1 EACH CAP.SPRINK GT SCH ×2 (08:09→16:50)
[2019-08-18] MEDS: ASCORBIC ACID 500 MG TABLET GT SCH (08:09)
[2019-08-18] MEDS: METOCLOPRAMIDE HCL 10 MG TABLET GT SCH ×3 (08:09→16:50)
[2019-08-18] MEDS: OXCARBAZEPINE 150 MG TABLET GT SCH ×4 (08:09→21:12)
[2019-08-18] MEDS: METOPROLOL TARTRATE 25 MG TABLET GT SCH ×2 (08:10→16:50)
[2019-08-18] MEDS: IV 1/2NS 1000 ML 1,000 ML IV PRN ×2 (10:49→22:43)
--- NOTE | 2019-08-18 11:34 | NUR ---
RN NOTE WOUND CARE NURSE HAS SEEN PATIENT. GT SITE REDNESS TO BE CLEANED AND KEPT DRY AT ALL TIMES
--- NOTE | 2019-08-18 11:35 | NUR ---
WOUND CARE CONSULT: PT PRESENTS WITH SACRAL SCARRING AND SLIGHT REDNESS AROUND G TUBE SITE. RECOMMENDATIONS MADE FOR SKIN PROTECTION. DISCUSSED WITH NURSING STAFF. PT ON OUMAR ISOFLEX LOW AIRLOSS BED. WILL SEE PRN. MALLOY IN AGREEMENT WITH PLAN OF CARE. Addendum: 08/18/19 at 1137 by DENI DYE WNDNU Amended: Links added.
[2019-08-18 12:00] VITALS: BP_SYST 116; BP_DIAS 64; BP_DIAS 94
[2019-08-18 16:00] VITALS: BP 112/54
--- NOTE | 2019-08-18 18:03 | NUR ---
[facility] NOTE INSERTED JOSE C MillerF PER CHRISTIANE IQBAL NP. Addendum: 08/18/19 at 1955 by FAISAL LAGUNAS RN PER DR BONG TOMLINSON TO INSERT FLEXPARKER. FARIDA ORDERED TO CHECK FOR CDIFF
[2019-08-18] MEDS: CEFEPIME 1 GM in IV D5W 50 ML IV SCH (18:54)
--- NOTE | 2019-08-18 19:30 | NUR ---
RN CLOSING NOTE PATIENT IN BED, ASLEEP BUT EASILY AROUSABLE. ALL MEDS GIVEN. ALL NEEDS MET. INSERTED WOODALL AND RECTAL TUBE. US KIDNEYS DONE, PENDING RX. PATIENT WILL HAVE US GUIDED THORACENTESIS, CONSENT SIGNED VIA TELEPHONE FROM THE PATIENT'S FATHER, ADALBERTO. PER FAMILY, THEY ARE REQUESTING TO SPEAK TO THE DOCTOR BEFORE THE PROCEDURE TOMORROW. WAS GIVEN MOTRIN THIS AM FOR FEVER OF 101F. COOLING MEASURES DONE. PATIENT AFEBRILE NOW. HAS RIGHT HAND MITTEN TO BE RENEWED AT 0405. NO SIGNS OF ANY PAIN NOR SOB. BED LOCKED IN LOWEST POSITION. ENDORSED TO [facility] SHIFT NURSE FOR MARCIA
--- NOTE | 2019-08-18 19:35 | NUR ---
RN Notes Received patient asleep easily arousable, obtunded. HOB elevated, trach intact with cool aerosol at 8LPM O2. No signs of distress and discomfort noted. Tele monitor reads Sinus Tach with heart rate at 115. Left upper arm midline patent and intact. Right hand mittens on with good circulation. Flexiseal and dasilva cath intact to gravity. Safety measures in place. Will turn and reposition per protocol. Will continue to monitor patient.
[2019-08-18 20:00] VITALS: BP 124/76
--- NOTE | 2019-08-18 21:00 | NUR ---
RN Notes Suppose to give 4 tabs of Trileptal 150 mg and took only 1 tab from the omnicel. Called pharmacy and made aware, do central count with charge and may take the medication again. After central count with the charge aide still unable to get the medication because of insufficient number of medication. Return 1 tab to the same omnicel and took 4 tabs of 150 mgs from another omcicel per managed care coordinator.
[2019-08-18] MEDS: METRONIDAZOLE 500 MG TABLET PO SCH (21:12)
[2019-08-18] MEDS: ENOXAPARIN SODIUM 40 MG/0.4 ML DISP.SYRIN SQ SCH (21:13)
[2019-08-18] MEDS: LINEZOLID 600 MG TABLET PO SCH (21:13)
[2019-08-19] VITALS: BP 126/68
[2019-08-19 04:00] VITALS: BP 120/66
[2019-08-19] MEDS: METRONIDAZOLE 500 MG TABLET PO SCH ×3 (05:09→21:15)
[2019-08-19] MEDS: ERYTHROMYCIN ETHYLSUCCINATE 200 MG/5 ML SUSPENSION GT SCH ×3 (05:24→18:04)
[2019-08-19] MEDS: VITAL AF 1.2 1,000 ML BOTTLE GT PRN ×3 (05:24→17:17)
[2019-08-19 06:32] LABS: CALCIUM, SERUM 8.2 mg/dL (8.5-10.1); CREATININE 3.5 mg/dL (0.6-1.3); POTASSIUM 3.7 mmol/L (3.5-5.1)
--- NOTE | 2019-08-19 06:56 | NUR ---
RN Notes No significant change in condition noted. Vital signs stable, afebrile. Kept HOB elevated at 40 degrees, GT feeding tolerated well. Tele monitor reads Sinus Tach with heart rate at 117. No episode of seizure noted. Right hand mittens on with good circulation. Suctions secretions PRN. Turned and reposition per protocol. Flexi seal and Mitchell cath intact. Safety measures and fall precaution observed. Will endorse accordingly.
[2019-08-19] MEDS: BUDESONIDE RESPULE INH 0.5 MG/2 ML AMPUL.NEB IH SCH ×3 (07:43→21:17)
[2019-08-19] MEDS: IPRATROPIUM NEB FS 0.5 MG/2.5 ML AMPUL.NEB IH SCH ×3 (07:43→21:17)
[2019-08-19 08:00] VITALS: BP 137/91
--- NOTE | 2019-08-19 08:00 | NUR ---
RN NOTES RECEIVED PATIENT ON BED, AWAKE, OBTUNDED , NOT IN DISTRESS, NO SOB , ON GT FEEDING VITAL AF 300ML/ 6 HRS, WITH IV MIDLINE IN RIGHT UPPER ARM ON /2 NS AT 100 ML/HR. HOB UP AT 45 AT ALL TIME, SUCTION COMPLETED, PT TOLERATED WELL, NO SOB, KEPT CLEAN AND DRY, PADDED SIDE RAILS OBSERVED, CALL LIGHT WITHIN REACH
[2019-08-19] MEDS: IV 1/2NS 1000 ML 1,000 ML IV PRN ×2 (09:46→21:13)
[2019-08-19] MEDS: LEVETIRACETAM SOL (5 ML) 100 MG/ML UDC PO SCH ×2 (09:59→21:14)
[2019-08-19] MEDS: LACTOBACILLUS RHAMNOSUS GG 1 EACH CAP.SPRINK GT SCH ×2 (10:00→17:13)
[2019-08-19] MEDS: LINEZOLID 600 MG TABLET PO SCH ×2 (10:00→21:15)
[2019-08-19] MEDS: METOCLOPRAMIDE HCL 10 MG TABLET GT SCH ×3 (10:00→17:13)
[2019-08-19] MEDS: ASCORBIC ACID 500 MG TABLET GT SCH (10:01)
[2019-08-19] MEDS: OXCARBAZEPINE 150 MG TABLET GT SCH ×4 (10:02→21:15)
[2019-08-19] MEDS: METOPROLOL TARTRATE 25 MG TABLET GT SCH ×2 (10:03→17:12)
[2019-08-19 12:00] VITALS: BP 140/78
[2019-08-19 16:00] VITALS: BP 119/73
[2019-08-19] MEDS: CEFEPIME 1 GM in IV D5W 50 ML IV SCH (17:13)
[2019-08-19] MEDS: LORAZEPAM INJ 2 MG/ML VIAL IV PRN (18:04)
[2019-08-19 20:00] VITALS: BP 120/75
--- NOTE | 2019-08-19 20:00 | NUR ---
VAN DRIVER NOTE PT IN BED OBTUNDED. ON T PIECE 8L FIO2 35% O2 SAT 100%. NO DISTRESS OR DISCOMFORT NOTED. NO S/S OF PAIN NOTED. ON TELE MONITOR SR/ST 100. FLEXI SEAL INTACT AND PATENT DRAINING BROWNISH COLOR LIQUIDY URINE. F/C INTACT AND PATENT DRAINING YELLOWISH COLOR URINE. IVF 1/2 NS INFUSING AT 100 ML/HR, NO S/S OF INFILTRATION NOTED. SITTER AT BED SIDE. ALSO PT REMAIN IN ISOLATION FOR C DIFF RESULT PENDING. REPOSITION HIM Q2H, KEPT HIM DRY AND CLEAN. VSS. CONTINUE TO MONITOR HIM.
[2019-08-19] MEDS: ENOXAPARIN SODIUM 40 MG/0.4 ML DISP.SYRIN SQ SCH (21:14)
[2019-08-20] VITALS: BP_SYST 116; BP_SYST 134; BP_DIAS 76; BP_DIAS 83
[2019-08-20] MEDS: VITAL AF 1.2 1,000 ML BOTTLE GT PRN ×4 (00:20→23:57)
[2019-08-20] MEDS: ERYTHROMYCIN ETHYLSUCCINATE 200 MG/5 ML SUSPENSION GT SCH ×5 (00:29→23:57)
[2019-08-20] MEDS: HYDROCODONE/APAP 5/325MG 1 EACH TABLET GT PRN (01:00)
--- NOTE | 2019-08-20 01:02 | NUR ---
PROCESS ANALYST NOTE NOTE PT WITH MINOR GRIMMICE ON HIS FACE. NORCO 1 TAB VIA GT GIVEN FOR PAIN AND COMFORT.
--- NOTE | 2019-08-20 02:02 | NUR ---
PROPAGATION MANAGER NOTE PT ACCIDENTLY HIT THE TRACH SITE AND NOTED CANNULA PULLED OUT. RT AT THE BED SIDE AND INSERTED NEW ROSSI #6 WITHOUT ANY DIFFICULTY. SUCTIONED THE PT WITH LOTS OF COPIOUS AMOUNT OF WHITE SECRETIONS. KEPT HOB ELEVATED. O2 SAT 92-94%. SITTER AT BED SIDE. CONTINUE TO MONITOR HIM. Addendum: 08/20/19 at 0649 by GENARO ARNETT RN WRONG TIME ENTERED. IT WAS AT 0300
--- NOTE | 2019-08-20 03:21 | NUR ---
rt called to pt bedside at about 0300 for decannulation. federico Jauregui trach reinserted with no difficulty. pt ventilated via ambu bag and returned to cool aerosol 35% 8l. pt agitated with spo2 92-94% at this time. Addendum: 08/20/19 at 0324 by TAD FRANKS RT Amended: Links added.
--- NOTE | 2019-08-20 03:21 | NUR ---
NIMO PASTRANA WAS NOTIFIED THAT PATIENT TRACHEOSTOMY WAS REPLACED BY RT DUE TO DECANNULATION, AND NOTIFIED ALSO OF INCREASED TRACHEAL SECRETIONS REQUIRING FREQUENT SUCTIONING, WITH ORDER TO DO STAT CXR. ORDER NOTED, RADIOLOGY DEPT. NOTIFIED. PATIENT IN BED WITH SITTER AT BEDSIDE. AWAKE AND SLIGHTLY AGITATED. TRACH SECURED AT MIDLINE CONNECTED TO T-PIECE AT 35%. O2 SATURATION AT 94%. HOB ELEVATED TO MAXIMUM OXYGENATION. NO BLEEDING AT TRACH STOMA NOTED. KEPT CLEAN AND COMFORTABLE. PT. IS BEING CLOSELY MONITORED.
[2019-08-20 04:00] VITALS: BP 134/79
[2019-08-20] MEDS: METRONIDAZOLE 500 MG TABLET PO SCH ×3 (05:03→21:44)
--- NOTE | 2019-08-20 06:50 | NUR ---
MOTTLER OPERATOR NOTE PT IN BED OBTUNDED. REMAIN ON COOL AEROSOL TOLERATING WELL. O2 SAT 97%. NO DISTRESS OR DISCOMFORT NOTED. NO S/S OF PAIN NOTED. GTF INFUSING WELL, 0 ML RESIDUAL NOTED. KEPT HOB ELEVATED. IVF INFUSING WELL, NO S/S OF INFILTRATION NOTED. ON TELE ST HR 114 AT THIS TIME. REPOSITION HIM Q2H, KEPT HIM DRY AND CLEAN. FLEX SEAL INTACT AND PATENT DRAINING BROWNISH COLOR LIQUIDY STOOL. F/C INTACT AND PATENT DRAINING YELLOWISH COLOR URINE. SIDE RAILS UP X 2 AND CALL LIGHT WITHIN REACH. WILL ENDORSE TO DAY SHIFT NURSE FOR CONTINUE TO CARE.
[2019-08-20] MEDS: IPRATROPIUM NEB FS 0.5 MG/2.5 ML AMPUL.NEB IH SCH ×2 (07:53→19:36)
[2019-08-20] MEDS: BUDESONIDE RESPULE INH 0.5 MG/2 ML AMPUL.NEB IH SCH ×2 (07:53→19:36)
[2019-08-20] MEDS: IV 1/2NS 1000 ML 1,000 ML IV PRN ×2 (07:55→18:19)
[2019-08-20] MEDS: ACETAMINOPHEN 325 MG TABLET PO PRN (07:57)
[2019-08-20 08:00] VITALS: BP 137/84
[2019-08-20] MEDS: LINEZOLID 600 MG TABLET PO SCH ×2 (08:05→21:44)
[2019-08-20] MEDS: METOCLOPRAMIDE HCL 10 MG TABLET GT SCH ×3 (08:06→16:41)
[2019-08-20] MEDS: LACTOBACILLUS RHAMNOSUS GG 1 EACH CAP.SPRINK GT SCH ×2 (08:06→16:41)
[2019-08-20] MEDS: ASCORBIC ACID 500 MG TABLET GT SCH (08:06)
[2019-08-20] MEDS: LEVETIRACETAM SOL (5 ML) 100 MG/ML UDC PO SCH ×2 (08:06→21:44)
[2019-08-20] MEDS: METOPROLOL TARTRATE 25 MG TABLET GT SCH ×2 (08:07→16:44)
[2019-08-20] MEDS: OXCARBAZEPINE 150 MG TABLET GT SCH ×4 (08:07→21:44)
[2019-08-20 16:00] VITALS: BP 137/84
[2019-08-20] MEDS: CEFEPIME 1 GM in IV D5W 50 ML IV SCH (17:52)
[2019-08-20 20:00] VITALS: BP 120/65
--- NOTE | 2019-08-20 20:08 | NUR ---
RT PT RECEIVED ON CA AT 8L. PT IS PAULIEDBRENT 6 DCT. AMBU BAG AT HEAD OF BED. HOB AT 30 DEGREES. CA WATER HALF FULL. PT IN NO APPARENT RESPIRATORY DISTRESS. WILL CONTINUE TO MONITOR. Addendum: 08/20/19 at 2010 by TRUPTI ROSALES RT Amended: Links added.
--- NOTE | 2019-08-20 20:15 | NUR ---
AGENCY TRAINER NOTES RECEIVED REPORT FROM HELGA ARRIAGA. PATIENT A/A/O X1 TO NAME W/ CONFUSION & UNABLE TO MAKE NEEDS KNOWN. BREATHING EVEN & UNLABORED W/ TRACH INTACT & TOLERATING COOL AEROSOL W/ FIO2 OF 55%. NO S/S OF RESPIRATORY DISTRESS NOTED. ON TELE W/ SINUS RHYTHM, HR 70S. LEFT UPPER ARM MIDLINE INTACT & PATENT W/ DRESSING CDI & IVF 1/2 NS INFUSING WELL @ 100 ML/HR. WOODALL CATH DRAINING YELLOW URINE & FLEXISEAL W/ LIQUID BROWN STOOL. NO S/S OF PAIN OR DISCOMFORT @ THIS TIME. SAFETY MEASURES IN PLACE W/ SIDE RAILS UP & BED ALARM ON. TURNED & REPOSITIONED FOR COMFORT & HOB ELEVATED FOR ASPIRATION PRECAUTIONS. SITTER @ BEDSIDE. WILL CONTINUE TO MONITOR.
[2019-08-20] MEDS: ENOXAPARIN SODIUM 40 MG/0.4 ML DISP.SYRIN SQ SCH (21:50)
[2019-08-20] MEDS: LORAZEPAM INJ 2 MG/ML VIAL IV PRN (23:41)
--- NOTE | 2019-08-20 23:55 | NUR ---
RN NOTES, RECEIVED PATIENT FROM CORINA TEJADA FOR CONTINUATION OF CARE, PATIENT ASLEEP AT THIS TIME, BUT AROUSABLE TO TACTILE STIMULI, NO SOB/ACUTE DISTRESS NOTED AT THI TIME, NO FACIAL GRIMACING OR S/S OF PAIN OR DISCOMFORT, BED LOCK AND LOW POSITION WITH RIGHT HAND SOFT MITTEN IN PLACED, NO ABNORMALITIES NOTED, AND CIRCULATION NOT COMPROMISED, SITTER AT BEDSIDE, ALL NEEDS PROVIDED, WILL START FEEDING ORDERED, WILL CONTINUE TO MONITOR CLOSELY.
--- NOTE | 2019-08-20 23:55 | NUR ---
INDUSTRIAL WELDER NOTES GAVE REPORT TO HEIDI ARRIAGA FOR MARCIA.
[2019-08-21] VITALS: BP 134/83
[2019-08-21 04:00] VITALS: BP 153/77
[2019-08-21] MEDS: METRONIDAZOLE 500 MG TABLET PO SCH ×3 (04:11→21:24)
[2019-08-21] MEDS: ERYTHROMYCIN ETHYLSUCCINATE 200 MG/5 ML SUSPENSION GT SCH ×4 (05:37→23:25)
[2019-08-21] MEDS: VITAL AF 1.2 1,000 ML BOTTLE GT PRN (06:00)
[2019-08-21] MEDS: IV 1/2NS 1000 ML 1,000 ML IV PRN ×2 (06:18→17:26)
[2019-08-21] MEDS: LORAZEPAM INJ 2 MG/ML VIAL IV PRN ×2 (06:21→21:29)
--- NOTE | 2019-08-21 06:49 | NUR ---
RN NOTES, NO SIGNIFICANT CHANGE IN CONDITION DURING THE NIGHT, WITH EPISODES OF RESTLESSNESS, ATIVAN GIVEN ORDERED, WILL ENDORSE CONTINUITY OF CARE TO ONCOMING NURSE
--- NOTE | 2019-08-21 07:17 | NUR ---
RN OPENING NOTES RECEIVED PATIENT SLEEPING IN BED COMFORTABLY WITH PATIENT SITTER AT BEDSIDE. HE IS AOX1, NON-VERBAL (SIGN LANGUAGE), AND ON BED REST. SEIZURE PRECAUTIONS HAVE BEEN IMPLEMENTED. HE IS ON COOL AEROSOL VIA TRACH, TOLERATING WELL, NO S/SX OF RESP DISTRESS OR SOB. TELE MONITOR SHOWING ST, WITH HR IN LOW 100'S. WOODALL CATH AND FLEXI SEAL ARE INTACT AND PATENT. PT IS RECEIVING VITAL AF TUBE FEEDING OF 300 ML BOLUS AT A RATE OF 150 ML/HR Q6H, TOLERATING WELL. GANGA MIDLINE IS INTACT AND PATENT, INFUSING 1/2 NS AT 100 ML/HR. SKIN IS INTACT, SACRAL REDNESS. SAFETY MEASURES HAVE BEEN IMPLEMENTED, CALL LIGHT IS WITHIN REACH, BED IS IN LOWEST AND LOCKED POSITION, SIDE RAILS UP X2, WILL CONTINUE TO MONITOR FOR ANY CHANGES.
[2019-08-21 07:27] LABS: BASOPHILS # (AUTO) 0.1 /CMM (0.0-0.2); BASOPHILS % (AUTO) 0.5 % (0.0-2.0); HEMATOCRIT 30 % (39-51); HEMOGLOBIN 9.6 g/dL (13.5-17.5); LYMPHOCYTES # (AUTO) 2.9 /CMM (0.8-4.8); MEAN CORPUSCULAR HGB CONC 32 g/dl (31.0-36.0); MEAN CORPUSCULAR VOLUME 96 fL (80-96); MONOCYTES # (AUTO) 1.2 /CMM (0.1-1.30); MONOCYTES % (AUTO) 7.6 % (2.0-12.0); NEUTROPHILS # (AUTO) 10.9 /CMM (1.8-8.9); NEUTROPHILS % (AUTO) 67.9 % (43.0-81.0); PLATELET COUNT (AUTO) 307 /CMM (150-450); RED BLOOD CELL COUNT(AUTO) 3.06 MIL/uL (4.5-6.0)
[2019-08-21] MEDS: BUDESONIDE RESPULE INH 0.5 MG/2 ML AMPUL.NEB IH SCH ×2 (07:30→20:16)
[2019-08-21] MEDS: IPRATROPIUM NEB FS 0.5 MG/2.5 ML AMPUL.NEB IH SCH ×2 (07:30→20:16)
[2019-08-21 07:43] LABS: CALCIUM, SERUM 8.4 mg/dL (8.5-10.1); CREATININE 1.9 mg/dL (0.6-1.3); MAGNESIUM 1.6 mg/dL (1.8-2.4); PHOSPHORUS 3.3 mg/dL (2.5-4.9); POTASSIUM 3.2 mmol/L (3.5-5.1)
[2019-08-21 08:00] VITALS: BP 124/75
[2019-08-21] MEDS: METOPROLOL TARTRATE 25 MG TABLET GT SCH ×2 (09:00→16:38)
[2019-08-21] MEDS: OXCARBAZEPINE 150 MG TABLET GT SCH ×4 (09:21→21:24)
[2019-08-21] MEDS: LEVETIRACETAM SOL (5 ML) 100 MG/ML UDC PO SCH ×2 (09:21→21:24)
[2019-08-21] MEDS: ASCORBIC ACID 500 MG TABLET GT SCH (09:21)
[2019-08-21] MEDS: METOCLOPRAMIDE HCL 10 MG TABLET GT SCH ×3 (09:21→16:38)
[2019-08-21] MEDS: LINEZOLID 600 MG TABLET PO SCH ×2 (09:21→21:24)
[2019-08-21] MEDS: LACTOBACILLUS RHAMNOSUS GG 1 EACH CAP.SPRINK GT SCH ×2 (09:21→16:38)
[2019-08-21] MEDS ORDERED: Magnesium 1GM/D5W 100ML PREMIX 100 ML IV SCH (09:29)
[2019-08-21] MEDS ORDERED: POTASSIUM CHLORIDE 20 MEQ POWDER PACKET NG SCH (09:30)
[2019-08-21 11:19] LABS: APPEARANCE,URINE CLEAR (CLEAR); BILIRUBIN,URINE NEGATIVE (NEGATIVE); BLOOD, URINE MODERATE Ery/uL (NEGATIVE); COLOR,URINE YELLOW (YELLOW); KETONES,URINE TRACE (NEGATIVE); LEUKOCYTE ESTERASE ,URINE TRACE (NEGATIVE); NITRITE, URINE NEGATIVE (NEGATIVE); PROTEIN,URINE NEGATIVE (NEGATIVE); UGLUCOSE NEGATIVE (NEGATIVE); UROBILINOGEN,URINE 0.2 EU/dL (0.2)
[2019-08-21 11:21] LABS: CREATININE, URINE 27.5 MG/DL (30.0-125.0); URINE TOTAL PROTEIN 17.8 mg/dL (0-11.9)
[2019-08-21 11:24] LABS: BACTERIA,URINE None seen /HPF (None Seen); RBC,URINE 51-80 /HPF (0-2); SQUAMOUS EPITHELIAL CELL,UR Few /HPF (None Seen)
[2019-08-21] MEDS: CEFEPIME 2 GM in IV D5W 100 ML IV SCH ×2 (11:28→22:03)
[2019-08-21 13:03] LABS: EOSINOPHIL,URINE None Seen
[2019-08-21 16:00] VITALS: BP 155/92
--- NOTE | 2019-08-21 16:23 | NUR ---
infection control clifford made aware of pending afb from pleural fluids,will move patient to airborne precaution.no need to send 3 afb.
--- NOTE | 2019-08-21 17:10 | NUR ---
PT HAS BEEN MOVED TO 101 FOR AIRBORNE PRECAUTIONS
--- NOTE | 2019-08-21 18:42 | NUR ---
RN CLOSING NOTES PATIENT IS RESTING COMFORTABLY IN BED WITH SITTER AT BEDSIDE. HE IS ON COOL AEROSOL VIA TRACH, TOLERATING WELL. HE DOES NO SHOW ANY S/SX OF DISTRESS OR SOB. NO SEIZURE ACTIVITY OCCURRED THROUGHOUT THE SHIFT. PT WAS MOVED FROM ROOM 105 TO ROOM 101 FOR THE POSSIBLE REQUIREMENT OF AIRBORNE PRECAUTIONS. NO ACUTE CHANGES OCCURRED, VITALS ARE STABLE, PT NEEDS HAVE BEEN MET. SAFETY MEASURES HAVE BEEN IMPLEMENTED, CALL LIGHT IS WITHIN REACH, BED IS IN LOWEST AND LOCKED POSITION, SIDE RAILS UP X4, WILL ENDORSE TO NIGHTSHIFT RN FOR CONTINUITY OF CARE.
--- NOTE | 2019-08-21 19:21 | NUR ---
RN OPENING NOTES RECEIVED REPORT FROM CORINA STEPHEN. PATIENT A/A/O X 1 TO NAME. PATIENT UNABLE TO MAKE NEEDS KNOWN. BREATHING EVEN AND UNLABORED WITH TRACH INTACT, TOLERATING COOL AEROSOL W/FIO2 OF 55%. NO S/S OF RESPIRATORY DISTRESS. NO SHORTNESS OF BREATH NOTED. LEFT UPPER ARM MIDLINE INTACT AND PATENT WITH DRESSING. IVF RUNNIN/2 NS INFUSING @ 100 ML/HR. WOODALL CATHETER DRAINING WELL WITH YELLOW URINE. FLEXISEAL WITH LIQUID BROWN STOOL. NO SIGNS OF FACIAL GRIMACING INDICATING PAIN OR DISCOMFORT AT THIS TIME. SAFETY PRECAUTIONS IMPLEMENTED; CALL LIGHT WITHIN REACH, SIDE RAILS UP, BED ALARM ON. TURNED AND REPOSITIONED. HEAD OF BED ELEVATED FOR ASPIRATION PRECAUTIONS. SITTER AT BEDSIDE. WILL CONTINUE TO MONITOR PATIENT.
[2019-08-21 20:00] VITALS: BP 116/68
[2019-08-21] MEDS: ENOXAPARIN SODIUM 40 MG/0.4 ML DISP.SYRIN SQ SCH (21:28)
[2019-08-22] VITALS: BP 119/74
[2019-08-22] MEDS: IV 1/2NS 1000 ML 1,000 ML IV PRN ×2 (01:55→20:00)
[2019-08-22] MEDS: VITAL AF 1.2 1,000 ML BOTTLE GT PRN (02:12)
[2019-08-22 02:50] VITALS: BP 124/72
[2019-08-22] MEDS: LORAZEPAM INJ 2 MG/ML VIAL IV PRN ×4 (02:59→22:00)
[2019-08-22 04:00] VITALS: BP 127/74
[2019-08-22] MEDS: METRONIDAZOLE 500 MG TABLET PO SCH ×2 (05:19→13:08)
--- NOTE | 2019-08-22 06:31 | NUR ---
RN CLOSING NOTES NO ACUTE CHANGE IN CONDITION DURING THE SHIFT. PATIENT HAD EPISODES OF RESTLESSNESS, AGITATION, ATIVAN GIVEN ORDERED. SAFETY PRECAUTIONS REMAIN IMPLEMENTED. WILL ENDORSE TO DAYSHIFT NURSE FOR CONTINUITY OF CARE.
--- NOTE | 2019-08-22 06:48 | NUR ---
RN NOTES ERYTHROMYCIN DOSE SCHEDULED FOR 0600 NOT ABLE TO GIVE BECAUSE CURRENT DOSE IS . I INFORMED PHARMACY TO DELIVER EXTRA ERYTHROMYCIN FOR 0600 AND FUTURE DOSES. PHARMACY STATES THEY HAVE RAN OUT AND WILL BE DELIVERED LATER FOR DAYSHIFT TO ADMINISTER. WILL ENDORSE TO DAYSHIFT NURSE.
[2019-08-22 07:00] LABS: BASOPHILS # (AUTO) 0.1 /CMM (0.0-0.2); BASOPHILS % (AUTO) 0.5 % (0.0-2.0); EOSINOPHILS % (AUTO) 5.4 % (0.0-6.0); HEMATOCRIT 29 % (39-51); HEMOGLOBIN 9.8 g/dL (13.5-17.5); LYMPHOCYTES # (AUTO) 2.6 /CMM (0.8-4.8); LYMPHOCYTES % (AUTO) 16.9 % (20.0-44.0); MEAN CORPUSCULAR HGB CONC 33 g/dl (31.0-36.0); MEAN CORPUSCULAR VOLUME 94 fL (80-96); MONOCYTES # (AUTO) 0.9 /CMM (0.1-1.30); MONOCYTES % (AUTO) 6.1 % (2.0-12.0); NEUTROPHILS # (AUTO) 10.8 /CMM (1.8-8.9); NEUTROPHILS % (AUTO) 71.1 % (43.0-81.0); PLATELET COUNT (AUTO) 408 /CMM (150-450); RED BLOOD CELL COUNT(AUTO) 3.11 MIL/uL (4.5-6.0); WHITE BLOOD COUNT (AUTO) 15.2 K/uL (4.3-11.0)
--- NOTE | 2019-08-22 07:00 | NUR ---
MS RN OPENING NOTE: RECEIVED PATIENT IN BED. AWAKE, ALERT AND CONFUSED. ON AIRBORNE PRECAUTIONS, STAFF AWARE AND COMPLIANCE OBSERVED. NON COMPLIANCE WITH CARE BY CONTINUOUSLY TRYING TO REMOVE IV LINES AND TRACH APPARENT, SITTER AT BEDSIDE. WITH TRACH TUBE SHILEY 6 NO CUFF, TOLERATING WELL. NO SOB, NOT IN DISTRESS. GANGA MIDLINE IV SITE AND PATENT. SITE CLEAN, DRY AND INTACT AND WITH 1/2 NS @ 100ML/HR, INFUSING WELL. NO PAIN NOTED. CALL LIGHT IN REACH, SIDE RAILS UP, BED LOCKED, LOW AND AT SEMI-WRIGHT'S POSITION. WILL CONTINUE TO MONITOR. Addendum: 08/22/19 at 1002 by SILVIA PEREZ RN WITH FLEXISEAL AND NOTED WITH BROWN LIQUID STOOLS, GT SITE PATENT AND IN PLACE.
[2019-08-22 07:35] LABS: ALBUMIN 2.3 g/dL (3.4-5.0); BILIRUBIN,TOTAL 0.2 mg/dL (0.2-1.0); CALCIUM, SERUM 8.7 mg/dL (8.5-10.1); CREATININE 1.4 mg/dL (0.6-1.3); MAGNESIUM 1.7 mg/dL (1.8-2.4); PHOSPHORUS 2.7 mg/dL (2.5-4.9); POTASSIUM 3.1 mmol/L (3.5-5.1); TOTAL PROTEIN, SERUM 7.2 g/dL (6.4-8.2)
[2019-08-22 08:00] VITALS: BP 121/85
[2019-08-22] MEDS: IPRATROPIUM NEB FS 0.5 MG/2.5 ML AMPUL.NEB IH SCH ×2 (08:02→19:39)
[2019-08-22] MEDS: BUDESONIDE RESPULE INH 0.5 MG/2 ML AMPUL.NEB IH SCH ×2 (08:02→19:39)
[2019-08-22] MEDS: LINEZOLID 600 MG TABLET PO SCH ×2 (08:45→20:48)
[2019-08-22] MEDS: ASCORBIC ACID 500 MG TABLET GT SCH (08:45)
[2019-08-22] MEDS: OXCARBAZEPINE 150 MG TABLET GT SCH ×4 (08:45→20:46)
[2019-08-22] MEDS: METOCLOPRAMIDE HCL 10 MG TABLET GT SCH ×3 (08:45→17:04)
[2019-08-22] MEDS: LACTOBACILLUS RHAMNOSUS GG 1 EACH CAP.SPRINK GT SCH ×2 (08:45→17:04)
[2019-08-22] MEDS: METOPROLOL TARTRATE 25 MG TABLET GT SCH ×2 (08:46→17:04)
[2019-08-22] MEDS: LEVETIRACETAM SOL (5 ML) 100 MG/ML UDC PO SCH ×2 (08:46→20:49)
[2019-08-22 09:07] LABS: COMPLEMENT C3, SERUM 107 mg/dL (82-167); COMPLEMENT C4, SERUM 17 mg/dL (14-44)
--- NOTE | 2019-08-22 10:00 | NUR ---
MS RN NOTE: PATIENT CARE DONE. NEW LEFT AND RIGHT BUTTOCK REDNESS NOTED. ZGUARD AND MEPILEX APPLIED. WOUND CARE CONSULT MADE FOR PATIENT.
[2019-08-22] MEDS: POTASSIUM CHLORIDE 20 MEQ POWDER PACKET NG SCH ×2 (10:32→13:09)
[2019-08-22] MEDS: Magnesium 1GM/D5W 100ML PREMIX 100 ML IV SCH ×2 (10:32→13:08)
[2019-08-22] MEDS: CEFEPIME 2 GM in IV D5W 100 ML IV SCH ×2 (11:14→23:00)
[2019-08-22] MEDS: ERYTHROMYCIN ETHYLSUCCINATE 200 MG/5 ML SUSPENSION GT SCH ×3 (13:09→17:07)
--- NOTE | 2019-08-22 14:26 | NUR ---
airborne precaution removed per md order,infection control clifford notified.
[2019-08-22 16:00] VITALS: BP 119/60
--- NOTE | 2019-08-22 19:20 | NUR ---
MS RN CLOSING NOTE: PATIENT IN BED. AWAKE, ALERT AND CONFUSED. NON COMPLIANCE WITH CARE BY CONTINUOUSLY TRYING TO REMOVE IV LINES AND TRACH STILL OBSERVED. SITTER AT BEDSIDE. WITH TRACH TUBE SHILEY 6 NO CUFF, TOLERATING WELL. NO SOB, NOT IN DISTRESS. GANGA MIDLINE IV SITE AND PATENT. SITE CLEAN, DRY AND INTACT AND WITH 1/2 NS @ 100ML/HR, INFUSING WELL. NO PAIN NOTED. CALL LIGHT IN REACH, SIDE RAILS UP, BED LOCKED, LOW AND AT SEMI-WRIGHT'S POSITION. WILL CONTINUE ENDORSE TO ONCOMING SHIFT FOR MARCIA.
[2019-08-22 20:00] VITALS: BP 135/76
[2019-08-22] MEDS: ENOXAPARIN SODIUM 40 MG/0.4 ML DISP.SYRIN SQ SCH (21:59)
[2019-08-23] MEDS: ERYTHROMYCIN ETHYLSUCCINATE 200 MG/5 ML SUSPENSION GT SCH ×5 (01:20→23:39)
[2019-08-23] MEDS: LORAZEPAM INJ 2 MG/ML VIAL IV PRN ×5 (01:30→23:13)
[2019-08-23] MEDS: HYDROCODONE/APAP 5/325MG 1 EACH TABLET GT PRN ×3 (01:45→23:18)
[2019-08-23] MEDS: VITAL AF 1.2 1,000 ML BOTTLE GT PRN ×2 (02:35)
[2019-08-23] MEDS: IV 1/2NS 1000 ML 1,000 ML IV PRN ×2 (02:46→13:52)
[2019-08-23 04:00] VITALS: BP 135/88
--- NOTE | 2019-08-23 06:09 | NUR ---
RN NOTES IN BED AWAKE, VERY RESTLESS AND AGITATED. NOTED WITH FACIAL GRIMMACE, ATIVAN ADMINISTERED X 2 WITH HELP AND NORCO X WITH RELIEF. BREATHING EVEN AND UNLABORED. T-PIECE WITH COOL AEROSOL TOLERATING WELL. VITAL SIGNS WNL. WILL ENDORSE TO NEXT SHIFT FOR CONTINUITY OF CARE.
[2019-08-23 07:06] LABS: PTH, INTACT 28 pg/mL (15-65)
--- NOTE | 2019-08-23 07:20 | NUR ---
MS RN OPENING NOTE: RECEIVED PATIENT IN BED. AWAKE, ALERT AND CONFUSED WITH SITTER AT BEDSIDE, BEHAVIOR OF TRYING TO PULL OUT LINES NOTED. WITH TRACH TUBE SHILEY 6, TOLERATING WELL. NO SOB, NOT IN DISTRESS. GANGA MIDLINE IV SITE AND PATENT. SITE CLEAN, DRY AND INTACT AND WITH 1/2 NS @ 100ML/HR, INFUSING WELL. NO PAIN NOTED. WITH FLEXISEAL AND NOTED WITH BROWN LIQUID STOOLS, GT SITE PATENT AND IN PLACE. CALL LIGHT IN REACH, SIDE RAILS UP, BED LOCKED, LOW AND AT SEMI-WRIGHT'S POSITION. WILL CONTINUE TO MONITOR.
[2019-08-23] MEDS: IPRATROPIUM NEB FS 0.5 MG/2.5 ML AMPUL.NEB IH SCH ×2 (07:47→20:05)
[2019-08-23] MEDS: BUDESONIDE RESPULE INH 0.5 MG/2 ML AMPUL.NEB IH SCH ×2 (07:47→20:05)
[2019-08-23 08:00] VITALS: BP 128/87
[2019-08-23] MEDS: LEVETIRACETAM SOL (5 ML) 100 MG/ML UDC PO SCH ×2 (09:02→23:14)
[2019-08-23] MEDS: METOPROLOL TARTRATE 25 MG TABLET GT SCH ×2 (09:02→17:54)
[2019-08-23] MEDS: LACTOBACILLUS RHAMNOSUS GG 1 EACH CAP.SPRINK GT SCH ×2 (09:02→17:55)
[2019-08-23] MEDS: METOCLOPRAMIDE HCL 10 MG TABLET GT SCH ×3 (09:03→17:55)
[2019-08-23] MEDS: ASCORBIC ACID 500 MG TABLET GT SCH (09:03)
[2019-08-23] MEDS: OXCARBAZEPINE 150 MG TABLET GT SCH ×4 (09:03→23:21)
[2019-08-23] MEDS: LINEZOLID 600 MG TABLET PO SCH ×2 (09:03→23:19)
[2019-08-23 09:07] LABS: *ANA ANTI-CENTROMERE B AB <0.2 AI (0.0-0.9); *ANA ANTI-DNA(DS) AB, QN <1 IU/mL (0-9); *ANA ANTI-JO-1 <0.2 AI (0.0-0.9); *ANA ANTICHROMATIN ANTIBODY 0.2 AI (0.0-0.9); *ANA RNP ANTIBODIES <0.2 AI (0.0-0.9); *ANA SJOGREN'S ANTI-SS-A <0.2 AI (0.0-0.9); *ANA SJOGREN'S ANTI-SS-B <0.2 AI (0.0-0.9); *ANAANTI-SCLERODERMA-70 AB <0.2 AI (0.0-0.9); *ANASMITH AB <0.2 AI (0.0-0.9)
[2019-08-23] MEDS: CEFEPIME 2 GM in IV D5W 100 ML IV SCH ×2 (11:17→23:40)
[2019-08-23 12:18] LABS: BASOPHILS # (AUTO) 0.1 /CMM (0.0-0.2); BASOPHILS % (AUTO) 0.6 % (0.0-2.0); EOSINOPHILS % (AUTO) 8.2 % (0.0-6.0); HEMATOCRIT 28 % (39-51); HEMOGLOBIN 9.1 g/dL (13.5-17.5); LYMPHOCYTES # (AUTO) 2.8 /CMM (0.8-4.8); LYMPHOCYTES % (AUTO) 20.1 % (20.0-44.0); MEAN CORPUSCULAR HGB CONC 33 g/dl (31.0-36.0); MEAN CORPUSCULAR VOLUME 94 fL (80-96); MONOCYTES # (AUTO) 1.1 /CMM (0.1-1.30); MONOCYTES % (AUTO) 7.9 % (2.0-12.0); NEUTROPHILS # (AUTO) 8.9 /CMM (1.8-8.9); NEUTROPHILS % (AUTO) 63.2 % (43.0-81.0); PLATELET COUNT (AUTO) 388 /CMM (150-450); RED BLOOD CELL COUNT(AUTO) 2.98 MIL/uL (4.5-6.0)
[2019-08-23 12:25] LABS: CALCIUM, SERUM 8.6 mg/dL (8.5-10.1); POTASSIUM 3.6 mmol/L (3.5-5.1)
[2019-08-23 16:00] VITALS: BP_SYST 128; BP_SYST 91; BP_DIAS 57; BP_DIAS 78
--- NOTE | 2019-08-23 19:20 | NUR ---
MS RN CLOSING NOTE: PATIENT IN BED AND ASLEEP WITH SITTER AT BEDSIDE. NON COMPLIANCE OF CARE NOTED ALL ON SHIFT MANIFESTED BY CONTINUOUSLY TRYING TO PULL OUT LINES AND UNDOING REPOSITIONING AND TURNING DONE, PREFERRING TO LIE ON HIS LEFT SIDE. WITH TRACH TUBE SHILEY 6, TOLERATING WELL. NO SOB, NOT IN DISTRESS. GANGA MIDLINE IV SITE AND PATENT. SITE CLEAN, DRY AND INTACT AND WITH 1/2 NS @ 100ML/HR, INFUSING WELL. NO PAIN NOTED. WITH FLEXISEAL AND NOTED WITH BROWN LIQUID STOOLS, GT SITE PATENT AND IN PLACE. CALL LIGHT IN REACH, SIDE RAILS UP, BED LOCKED, LOW AND AT SEMI-WRIGHT'S POSITION. ENDORSED TO ONCOMING SHIFT FOR MARCIA.
[2019-08-23 20:00] VITALS: BP 134/87
[2019-08-23] MEDS: ENOXAPARIN SODIUM 40 MG/0.4 ML DISP.SYRIN SQ SCH (23:39)
[2019-08-24] MEDS: IV 1/2NS 1000 ML 1,000 ML IV PRN ×2 (00:14→13:54)
[2019-08-24] MEDS: LORAZEPAM INJ 2 MG/ML VIAL IV PRN ×3 (03:01→21:15)
[2019-08-24 04:00] VITALS: BP 128/70
[2019-08-24 06:20] LABS: BASOPHILS # (AUTO) 0.1 /CMM (0.0-0.2); BASOPHILS % (AUTO) 0.5 % (0.0-2.0); HEMATOCRIT 28 % (39-51); HEMOGLOBIN 9.2 g/dL (13.5-17.5); LYMPHOCYTES % (AUTO) 18.4 % (20.0-44.0); MEAN CORPUSCULAR HGB CONC 33 g/dl (31.0-36.0); MEAN CORPUSCULAR VOLUME 93 fL (80-96); MONOCYTES # (AUTO) 0.9 /CMM (0.1-1.30); MONOCYTES % (AUTO) 5.6 % (2.0-12.0); NEUTROPHILS # (AUTO) 11.3 /CMM (1.8-8.9); NEUTROPHILS % (AUTO) 69.5 % (43.0-81.0); PLATELET COUNT (AUTO) 385 /CMM (150-450); RED BLOOD CELL COUNT(AUTO) 2.96 MIL/uL (4.5-6.0); WHITE BLOOD COUNT (AUTO) 16.2 K/uL (4.3-11.0)
[2019-08-24] MEDS: ERYTHROMYCIN ETHYLSUCCINATE 200 MG/5 ML SUSPENSION GT SCH ×4 (06:22→23:00)
[2019-08-24 06:40] LABS: CALCIUM, SERUM 8.6 mg/dL (8.5-10.1); CREATININE 0.8 mg/dL (0.6-1.3); MAGNESIUM 1.4 mg/dL (1.8-2.4); PHOSPHORUS 2.7 mg/dL (2.5-4.9); POTASSIUM 3.2 mmol/L (3.5-5.1)
[2019-08-24] MEDS: IPRATROPIUM NEB FS 0.5 MG/2.5 ML AMPUL.NEB IH SCH ×2 (07:30→19:27)
[2019-08-24] MEDS: BUDESONIDE RESPULE INH 0.5 MG/2 ML AMPUL.NEB IH SCH ×2 (07:30→19:27)
[2019-08-24 08:00] VITALS: BP 133/86
--- NOTE | 2019-08-24 08:00 | NUR ---
MS RN NOTE PATIENT IN BED AWAKE VERY RESTLESS, WITH TRACH TO COOLER AEROSOL 35%, NO SOB NOTED TRACH AND ORAL SUCTION DONE , WITH SITTER AT BEDSIDE , WITH WOODALL CATH TO GRAVITY. GANGA MID LINE IN PLACE FLUSHED WELL ,ON IVF ORDERED BED IN LOWEST AND LOCKED POSITION WITH AND FLEXI SEAL IN PLACE WITH LIQUID STOOL ON PADDED SIDE RAILS ,WILL CONT TO MONITOR CLOSELY ATIVAN 2 MG IVP GIVEN FOR AGITATION BP 133/86 SAT 97%
[2019-08-24] MEDS: LINEZOLID 600 MG TABLET PO SCH ×2 (08:33→20:04)
[2019-08-24] MEDS: LACTOBACILLUS RHAMNOSUS GG 1 EACH CAP.SPRINK GT SCH ×2 (08:33→16:24)
[2019-08-24] MEDS: LEVETIRACETAM SOL (5 ML) 100 MG/ML UDC PO SCH ×2 (08:33→20:04)
[2019-08-24] MEDS: ASCORBIC ACID 500 MG TABLET GT SCH (08:33)
[2019-08-24] MEDS: METOPROLOL TARTRATE 25 MG TABLET GT SCH ×2 (08:34→16:25)
[2019-08-24] MEDS: METOCLOPRAMIDE HCL 10 MG TABLET GT SCH ×3 (08:34→16:24)
[2019-08-24] MEDS: OXCARBAZEPINE 150 MG TABLET GT SCH ×4 (08:34→20:04)
[2019-08-24] MEDS: POTASSIUM CHLORIDE 20 MEQ POWDER PACKET GT SCH ×2 (10:17→11:04)
[2019-08-24] MEDS: Magnesium 1GM/D5W 100ML PREMIX 100 ML IV SCH ×4 (10:18→13:55)
[2019-08-24] MEDS: CEFEPIME 2 GM in IV D5W 100 ML IV SCH ×2 (11:57→23:00)
[2019-08-24 12:00] VITALS: BP 115/62
[2019-08-24] MEDS: VITAL AF 1.2 1,000 ML BOTTLE GT PRN ×2 (12:10→17:55)
--- NOTE | 2019-08-24 13:27 | NUR ---
ms george note Irina vazquez registry np aware that earlier was very agitated and Ativan was given, us collected as ordered keep clean dry
[2019-08-24 15:05] LABS: APPEARANCE,URINE CLEAR (CLEAR); BILIRUBIN,URINE NEGATIVE (NEGATIVE); BLOOD, URINE NEGATIVE Ery/uL (NEGATIVE); COLOR,URINE YELLOW (YELLOW); KETONES,URINE TRACE (NEGATIVE); LEUKOCYTE ESTERASE ,URINE TRACE (NEGATIVE); NITRITE, URINE NEGATIVE (NEGATIVE); PROTEIN,URINE NEGATIVE (NEGATIVE); UGLUCOSE NEGATIVE (NEGATIVE); UROBILINOGEN,URINE 0.2 EU/dL (0.2)
[2019-08-24 15:19] LABS: RBC,URINE 0-2 /HPF (0-2)
[2019-08-24 15:20] LABS: BACTERIA,URINE 2+ /HPF (None Seen); HYALINE CASTS, URINE Rare /LPF (None Seen); SQUAMOUS EPITHELIAL CELL,UR 0-2 /HPF (None Seen)
--- NOTE | 2019-08-24 16:29 | NUR ---
MS RN NOTE CHEST XRAY DONE ,SEEN BY ELSA ARRIAGA ID
[2019-08-24 16:30] VITALS: BP 108/65
--- NOTE | 2019-08-24 17:22 | NUR ---
MS RN NOTE TRANSFERRED TO ROOM 116 BED 1
--- NOTE | 2019-08-24 18:44 | NUR ---
MS RN NOTE CONT ON COOLER AEROSOL ORDERED. ALL NEEDS ATTENDED . WILL CONT TO MONITOR, SITTER AT BEDSIDE
--- NOTE | 2019-08-24 19:31 | NUR ---
MS RN NOTES RECEIVED PT ON BED, RESTLESS. WITH 1 TO 1 SITTER. ON COOL AEROSOL NO RESPIRATORY DISTRESS NOTED. IV ACCESS ON GANGA MIDLINE, PATENT AND INTACT. ON WOODALL CATH DRAINING YELLOW URINE. HEAD OF BED ELEVATED. SIDE RAILS UP. CALL LIGHT WITHIN REACH. BED IN LOW AND LOCKED POSITION. BED ALARM ON. WILL CONTINUE TO MONITOR PT CLOSELY.
[2019-08-24 20:00] VITALS: BP 105/61
[2019-08-24] MEDS: ENOXAPARIN SODIUM 40 MG/0.4 ML DISP.SYRIN SQ SCH (20:05)
[2019-08-25] MEDS: VITAL AF 1.2 1,000 ML BOTTLE GT PRN ×3 (00:31→18:08)
[2019-08-25] MEDS: HYDROCODONE/APAP 5/325MG 1 EACH TABLET GT PRN (00:34)
[2019-08-25] MEDS: LORAZEPAM INJ 2 MG/ML VIAL IV PRN ×3 (02:34→21:42)
[2019-08-25 04:00] VITALS: BP 133/85
[2019-08-25] MEDS: ERYTHROMYCIN ETHYLSUCCINATE 200 MG/5 ML SUSPENSION GT SCH ×3 (05:04→17:13)
--- NOTE | 2019-08-25 07:14 | NUR ---
MS RN NOTES NO ACUTE CHANGES NOTED DURING THE SHIFT, PROVIDED COMFORT AND SAFETY. WILL ENDORSE TO THE AM NURSE FOR CONTINUITY OF CARE.
[2019-08-25 07:15] LABS: BASOPHILS # (AUTO) 0.1 /CMM (0.0-0.2); BASOPHILS % (AUTO) 0.6 % (0.0-2.0); EOSINOPHILS % (AUTO) 6.4 % (0.0-6.0); HEMATOCRIT 29 % (39-51); HEMOGLOBIN 9.6 g/dL (13.5-17.5); LYMPHOCYTES % (AUTO) 17.5 % (20.0-44.0); MEAN CORPUSCULAR HGB CONC 33 g/dl (31.0-36.0); MEAN CORPUSCULAR VOLUME 94 fL (80-96); MONOCYTES % (AUTO) 5.6 % (2.0-12.0); NEUTROPHILS % (AUTO) 69.9 % (43.0-81.0); PLATELET COUNT (AUTO) 408 /CMM (150-450); WHITE BLOOD COUNT (AUTO) 17.1 K/uL (4.3-11.0)
--- NOTE | 2019-08-25 07:20 | NUR ---
RN INITIAL NOTE PATIENT IN BED, VERY RESTLESS. SITTER AT BEDSIDE. PATIENT ACCIDENTALLY DECANNULATED HIS TRACH. CALLED RT STAT. REINSERTED AND ORDERED AT STAT XRAY. ON SHILEY #6 AND COOL AEROSOL 28%. HAS A WOODALL CATH WITH CLEAR AND YELLOW URINE. ON GTF VITAL AF AT 300 ML. HAS A LEFT UA MIDLINE SALINE LOCKED. BED LOCKED AND IN LOWEST POSITION. WILL CONTINUE TO MONITOR
[2019-08-25 08:00] VITALS: BP 133/83
[2019-08-25 08:12] LABS: CALCIUM, SERUM 8.8 mg/dL (8.5-10.1); CREATININE 0.7 mg/dL (0.6-1.3); MAGNESIUM 1.6 mg/dL (1.8-2.4); PHOSPHORUS 2.7 mg/dL (2.5-4.9); POTASSIUM 3.5 mmol/L (3.5-5.1)
[2019-08-25] MEDS: IPRATROPIUM NEB FS 0.5 MG/2.5 ML AMPUL.NEB IH SCH ×2 (08:27→19:54)
[2019-08-25] MEDS: BUDESONIDE RESPULE INH 0.5 MG/2 ML AMPUL.NEB IH SCH ×2 (08:27→19:54)
--- NOTE | 2019-08-25 08:41 | NUR ---
WOUND CARE CONSULT: PT SEEN FOR RASH TO BUTTOCKS AND PERINEUM. RECOMMENDATIONS MADE FOR SKIN CARE AND PROTECTION. DISCUSSED WITH NURSING STAFF. WILL SEE PRN. PT ON [facility] BED. IN AGREEMENT WITH PLAN OF CARE. Addendum: 08/25/19 at 0842 by DENI DYE WNDNU Amended: Links added.
--- NOTE | 2019-08-25 08:45 | NUR ---
RT PT DECANNULATED SELF. UNIT CALLED RT. 3 RTS ARRIVED TO ROOM. UNIT CHARGE NURSE PLACED NEW TRACH BACK INTO STOMA. RT ASSESSED SITE FOR BLEEDING (NO BLEEDING NOTED) AND ADEQUATE OXYGENATION. PLACED BACK ON 28% 5LPM. PT STABLE. VITALS WITHIN NORMAL LIMITS. SITTER AT BEDSIDE. WILL CONTINUE TO MONITOR. Addendum: 08/25/19 at 1106 by TRUPTI ROSALES RT Amended: Links added.
[2019-08-25] MEDS: LACTOBACILLUS RHAMNOSUS GG 1 EACH CAP.SPRINK GT SCH ×2 (08:52→16:12)
[2019-08-25] MEDS: LINEZOLID 600 MG TABLET PO SCH ×2 (08:52→21:42)
[2019-08-25] MEDS: LEVETIRACETAM SOL (5 ML) 100 MG/ML UDC PO SCH ×2 (08:52→21:42)
[2019-08-25] MEDS: OXCARBAZEPINE 150 MG TABLET GT SCH ×4 (08:52→21:42)
[2019-08-25] MEDS: METOCLOPRAMIDE HCL 10 MG TABLET GT SCH ×3 (08:52→16:12)
[2019-08-25] MEDS: ASCORBIC ACID 500 MG TABLET GT SCH (08:52)
[2019-08-25] MEDS: METOPROLOL TARTRATE 25 MG TABLET GT SCH ×2 (09:36→16:13)
[2019-08-25 10:08] LABS: *SPE A/G RATIO 0.7 (0.7-1.7); *SPE ALBUMIN 2.7 g/dL (2.9-4.4); *SPE ALPHA-1-GLOBULIN 0.5 g/dL (0.0-0.4); *SPE ALPHA-2-GLOBULIN 1.2 g/dL (0.4-1.0); *SPE BETA GLOBULIN 1.2 g/dL (0.7-1.3); *SPE GLOBULIN, TOTAL 3.7 g/dL (2.2-3.9); *SPE M-SPIKE Not Observed g/dL (Not Observed); *SPEGAMMA GLOBULIN 0.9 g/dL (0.4-1.8)
[2019-08-25] MEDS: CEFEPIME 2 GM in IV D5W 100 ML IV SCH ×2 (11:08→23:29)
[2019-08-25] MEDS: CLOTRIMAZOLE 1% 15 GM TUBE TP SCH ×2 (11:10→16:13)
[2019-08-25] MEDS: Magnesium 1GM/D5W 100ML PREMIX 100 ML IV SCH ×2 (12:07→13:02)
--- NOTE | 2019-08-25 15:34 | NUR ---
RN NOTE DR GIPSON ORDERED TO HAVE A THORACENTESIS DONE TODAY. CONSENT SIGNED VIA PHONE CALL. RADIOLOGY DEPT AWARE THAT WE ALREADY GOT THE CONSENT FORM, US TECH STATING THAT THERE WAS NOT ENOUGH FLUIDS IN THE RIGHT LUNG. SHE WILL LET RADIOLOGY AWARE
[2019-08-25 16:00] VITALS: BP 110/60
--- NOTE | 2019-08-25 18:46 | NUR ---
RN CLOSING NOTE PATIENT IN BED, ASLEEP BUT EASILY AROUSABLE TO TOUCH. SITTER AT BEDSIDE. NOT RESTLESS AT THIS TIME. WAS GIVEN 1X ATIVAN. ON SHILEY #4 28% ON COOL AEROSOL. HAS A WOODALL CATH WITH CLEAR AND YELLOW URINE. 700 ML OUT HAS A GTF VITAL AF 300 ML BOLUS. HAS A LEFT UA MIDLINE SALINE LOCKED. THORACENTESIS NOT DONE DUE TO SMALL PLEURAL EFFUSION. DC PLANNING WHEN WBC HAS STABILIZED. BED LOCKED AND IN LOWEST POSITION. WILL ENDORSE TO NOC SHIFT FOR MARCIA
[2019-08-25 20:00] VITALS: BP 113/73
[2019-08-25] MEDS: ENOXAPARIN SODIUM 40 MG/0.4 ML DISP.SYRIN SQ SCH (21:44)
--- NOTE | 2019-08-25 22:01 | NUR ---
RECEIVED PT TRACH ON COOL AEROSOL 28%. TRACH IS SECURE. PT IS RESTLESS. SITTER AT BEDSIDE. WILL CONTINUE TO MONITOR.
[2019-08-26] MEDS: VITAL AF 1.2 1,000 ML BOTTLE GT PRN ×3 (00:17→15:19)
[2019-08-26] MEDS: ERYTHROMYCIN ETHYLSUCCINATE 200 MG/5 ML SUSPENSION GT SCH ×4 (00:17→18:00)
[2019-08-26] MEDS: LORAZEPAM INJ 2 MG/ML VIAL IV PRN ×3 (01:52→20:52)
[2019-08-26 07:17] LABS: BASOPHILS # (AUTO) 0.1 /CMM (0.0-0.2); BASOPHILS % (AUTO) 0.7 % (0.0-2.0); EOSINOPHILS % (AUTO) 5.7 % (0.0-6.0); HEMATOCRIT 29 % (39-51); HEMOGLOBIN 9.4 g/dL (13.5-17.5); LYMPHOCYTES # (AUTO) 2.8 /CMM (0.8-4.8); LYMPHOCYTES % (AUTO) 17.4 % (20.0-44.0); MEAN CORPUSCULAR HGB CONC 32 g/dl (31.0-36.0); MEAN CORPUSCULAR VOLUME 94 fL (80-96); MONOCYTES # (AUTO) 0.9 /CMM (0.1-1.30); MONOCYTES % (AUTO) 5.4 % (2.0-12.0); NEUTROPHILS # (AUTO) 11.3 /CMM (1.8-8.9); NEUTROPHILS % (AUTO) 70.8 % (43.0-81.0); PLATELET COUNT (AUTO) 463 /CMM (150-450); RED BLOOD CELL COUNT(AUTO) 3.11 MIL/uL (4.5-6.0); WHITE BLOOD COUNT (AUTO) 15.9 K/uL (4.3-11.0)
--- NOTE | 2019-08-26 07:30 | NUR ---
MS RN CLOSING NOTE PATIENT IN BED WITH NO SIGN OF ANY DISTRESS, TOLERATING TRACH WITH COOL AEROSOL. SITTER IS AT BEDSIDE. NO SIGN OF ANY SOB. GANGA MIDLINE RUNNING WITH NO SIGN OF INFILTRATION. ALL NEEDS MET AND ALL SAFETY PRECAUTIONS APPLIED. ENDORSED PATIENT TO MORNING SHIFT NURSE FOR MARCIA.
[2019-08-26] MEDS: BUDESONIDE RESPULE INH 0.5 MG/2 ML AMPUL.NEB IH SCH ×2 (07:45→20:23)
[2019-08-26] MEDS: IPRATROPIUM NEB FS 0.5 MG/2.5 ML AMPUL.NEB IH SCH ×2 (07:46→20:23)
[2019-08-26 07:56] LABS: CREATININE 0.6 mg/dL (0.6-1.3); PHOSPHORUS 2.4 mg/dL (2.5-4.9); POTASSIUM 3.6 mmol/L (3.5-5.1)
[2019-08-26 08:00] VITALS: BP 130/83
[2019-08-26 08:04] LABS: MAGNESIUM 1.7 mg/dL (1.8-2.4)
[2019-08-26] MEDS: LEVETIRACETAM SOL (5 ML) 100 MG/ML UDC PO SCH ×2 (08:42→20:31)
[2019-08-26] MEDS: LACTOBACILLUS RHAMNOSUS GG 1 EACH CAP.SPRINK GT SCH ×2 (08:42→17:00)
[2019-08-26] MEDS: OXCARBAZEPINE 150 MG TABLET GT SCH ×4 (08:42→20:31)
[2019-08-26] MEDS: METOCLOPRAMIDE HCL 10 MG TABLET GT SCH ×3 (08:42→17:00)
[2019-08-26] MEDS: LINEZOLID 600 MG TABLET PO SCH ×2 (08:42→20:31)
[2019-08-26] MEDS: ASCORBIC ACID 500 MG TABLET GT SCH (08:42)
[2019-08-26] MEDS: CLOTRIMAZOLE 1% 15 GM TUBE TP SCH ×2 (09:00→17:00)
[2019-08-26] MEDS: CEFEPIME 2 GM in IV D5W 100 ML IV SCH (11:00)
[2019-08-26] MEDS ORDERED: NEUTRA PHOS 1 POWD.PACKET GT ONE (11:30)
[2019-08-26] MEDS: METOPROLOL TARTRATE 25 MG TABLET GT SCH ×2 (11:49→17:00)
[2019-08-26] MEDS: Magnesium 1GM/D5W 100ML PREMIX 100 ML IV SCH ×2 (13:10→15:20)
[2019-08-26 16:00] VITALS: BP 94/47
--- NOTE | 2019-08-26 18:00 | NUR ---
MS RN CLOSING No significant changes noted throughout shift. Noted 4 liquid BMs this shift. Sitter at bedside for safety. Pulse ox attached
--- NOTE | 2019-08-26 19:35 | NUR ---
RN NOTE, PATIENT IN BED, ASLEEP BUT EASILY AROUSABLE TO TACTILE STIMULI, ON SHILEY #4 28% ON COOL AEROSOL, WITH OPTIMAL O2 STA LEVEL AT THIS TIME, LEFT UA MIDLINE SALINE LOCKED PATENT AND INTACT, WOODALL CATH WITH CLEAR AND YELLOW URINE PATENCY INTACT, ON GTF VITAL AF 300 ML BOLUS Q6HRS WILL PROVIDE ORDERED, BED LOCKED AND IN LOWEST POSITION, ON BILATERAL SOFT WRIST RESTRAINS, CHECK CIRCULATION AND SITE, AND NO CIRCULATION COMPROMISED, NO ABNORMALITY OR SKIN ISSUE AT SITE, RESTRAINS RELEASED AT THIS TIME, ALL SAFETY MEASURES IN PLACED, WELL SEIZURE PRECAUTIONS, WITH BILATERALS 2 1/2 PADDED, CAREGIVER AT BEDSIDE, WILL CONTINUE TO MONITOR CLOSELY.
[2019-08-26 20:00] VITALS: BP 106/56
[2019-08-26] MEDS: ENOXAPARIN SODIUM 40 MG/0.4 ML DISP.SYRIN SQ SCH (20:33)
[2019-08-27] MEDS: CEFEPIME 2 GM in IV D5W 100 ML IV SCH ×3 (00:28→22:41)
[2019-08-27] MEDS: ERYTHROMYCIN ETHYLSUCCINATE 200 MG/5 ML SUSPENSION GT SCH ×4 (00:28→17:25)
[2019-08-27] MEDS: VITAL AF 1.2 1,000 ML BOTTLE GT PRN ×3 (00:43→17:25)
[2019-08-27] MEDS: LORAZEPAM INJ 2 MG/ML VIAL IV PRN ×3 (03:23→22:56)
[2019-08-27 04:00] VITALS: BP 120/82
[2019-08-27 06:20] LABS: BASOPHILS # (AUTO) 0.1 /CMM (0.0-0.2); BASOPHILS % (AUTO) 0.5 % (0.0-2.0); EOSINOPHILS % (AUTO) 4.6 % (0.0-6.0); HEMATOCRIT 29 % (39-51); HEMOGLOBIN 9.6 g/dL (13.5-17.5); LYMPHOCYTES # (AUTO) 2.4 /CMM (0.8-4.8); LYMPHOCYTES % (AUTO) 15.3 % (20.0-44.0); MEAN CORPUSCULAR HGB CONC 33 g/dl (31.0-36.0); MEAN CORPUSCULAR VOLUME 94 fL (80-96); MONOCYTES # (AUTO) 0.8 /CMM (0.1-1.30); MONOCYTES % (AUTO) 4.7 % (2.0-12.0); NEUTROPHILS % (AUTO) 74.9 % (43.0-81.0); PLATELET COUNT (AUTO) 523 /CMM (150-450); RED BLOOD CELL COUNT(AUTO) 3.14 MIL/uL (4.5-6.0)
[2019-08-27 06:25] LABS: CALCIUM, SERUM 8.9 mg/dL (8.5-10.1); CREATININE 0.7 mg/dL (0.6-1.3); MAGNESIUM 1.5 mg/dL (1.8-2.4); PHOSPHORUS 2.5 mg/dL (2.5-4.9)
--- NOTE | 2019-08-27 06:49 | NUR ---
RN NOTES, NO SIGNIFICANT CHANGE IN CONDITION DURING THE NIGHT, BREATHING EVEN ND UNLABORED, NO SOB/ACUTE DISTRESS NOTED, WITH STABLE VS, CONTINUE WITH RESTLESSNESS, ATIVAN GIVEN TWICE DURING THE NIGHT, WILL ENDORSE CONTINUITY OF CARE TO ONCOMING NURSE
[2019-08-27] MEDS: BUDESONIDE RESPULE INH 0.5 MG/2 ML AMPUL.NEB IH SCH ×2 (08:10→20:16)
[2019-08-27] MEDS: IPRATROPIUM NEB FS 0.5 MG/2.5 ML AMPUL.NEB IH SCH ×2 (08:10→20:16)
[2019-08-27] MEDS: OXCARBAZEPINE 150 MG TABLET GT SCH ×4 (09:09→21:43)
[2019-08-27] MEDS: LINEZOLID 600 MG TABLET PO SCH ×2 (09:10→21:43)
[2019-08-27] MEDS: LEVETIRACETAM SOL (5 ML) 100 MG/ML UDC PO SCH ×2 (09:11→21:43)
[2019-08-27] MEDS: ASCORBIC ACID 500 MG TABLET GT SCH (09:12)
[2019-08-27] MEDS: LACTOBACILLUS RHAMNOSUS GG 1 EACH CAP.SPRINK GT SCH ×2 (09:12→17:25)
[2019-08-27] MEDS: METOCLOPRAMIDE HCL 10 MG TABLET GT SCH ×3 (09:12→17:25)
[2019-08-27] MEDS: HALOPERIDOL 1 MG TABLET GT SCH ×2 (09:13→12:37)
[2019-08-27] MEDS: METOPROLOL TARTRATE 25 MG TABLET GT SCH ×2 (09:14→17:25)
[2019-08-27] MEDS: CLOTRIMAZOLE 1% 15 GM TUBE TP SCH ×2 (09:15→17:30)
--- NOTE | 2019-08-27 09:52 | NUR ---
RESIDUAL CHECK PRIOR TO MEDICATION ADMINISTRATION 350ML. NOTIFIED APPLE ARRIAGA. APPLE RECOMMEND TO INSTILL ONLY 100ML OF RESIDUAL AFTER MEDICATION ADMINISTRATION. GAVE 120ML FREE WATER WITH MED ADMINISTRATION. Addendum: 08/27/19 at 0954 by MARC ROBERTSON RN Amended: Links added.
--- NOTE | 2019-08-27 10:00 | NUR ---
MS RN NOTES VIC NOGUERA NP MADE AWARE OF GT RESIDUAL AND HOW MUCH WAS GIVEN TO PATIENT, NO NEW ORDERS AT THIS TIME. WILL CONTINUE TO MONITOR
[2019-08-27] MEDS: POTASSIUM CHLORIDE 20 MEQ POWDER PACKET GT SCH ×3 (11:26→13:02)
[2019-08-27] MEDS: Magnesium 1GM/D5W 100ML PREMIX 100 ML IV SCH ×2 (11:27→12:41)
--- NOTE | 2019-08-27 11:45 | NUR ---
MS RN NOTES PHARMACY MADE AWARE OF AWAITING CEFEPIME DOSE FOR 1100. AWAITING FOR DELIVERY
[2019-08-27 12:00] VITALS: BP 115/75
--- NOTE | 2019-08-27 12:55 | NUR ---
Gastric residual 10 ml prior to medication administration. Patient received 90 ml free water with medication administration. Jenni ARRIAGA notified. Addendum: 08/27/19 at 1256 by MARC ROBERTSON RN Amended: Links added.
--- NOTE | 2019-08-27 12:56 | NUR ---
MS RN NOTES GT RESIDUAL 10ML. GT BOLUS GIVEN ORDERED. PATIENT TOLERATING WELL. WILL CONTINUE TO MONITOR
[2019-08-27] MEDS: clonazePAM 0.5 MG TABLET GT SCH (17:25)
--- NOTE | 2019-08-27 18:25 | NUR ---
MS RN NOTES PATIENT RESTING INSIDE ROOM. NO ACUTE DISTRESS. ONGOING GTF BOLUS. PATIENT TOLERATING WELL. WOODALL CATH IN PLACE WITH YELLOW URINE OUTPUT NOTED IN COLLECTING BAG. PATIENT KEPT CLEAN, DRY AND COMFORTABLE. MAINTAINED ASPIRATION PRECAUTIONS. SAFETY PRECAUTIONS IN PLACE. WILL ENDORSE TO INCOMING SHIFT FOR MARCIA. BED LOCKED AND IN LOW POSITION. BILATERAL UPPER SIDE RAILS UP AND LOCKED. CALL LIGHT WITHIN EASY REACH
--- NOTE | 2019-08-27 19:50 | NUR ---
RN OPENING NOTES RECEIVED REPORT FROM ARIEL RNJOVANNI. FOUND Pt ASLEEP, RESTING IN BED. NO S/S OF ACUTE DISTRESS OR SOB NOTED. Pt IS A/OX1, NONVERBAL, BUT ABLE TO COMMUNICATE BY POINTING. SITTER AT BEDSIDE. ALSO ILEANA SOFT MITTENS ON DUE TO Pt BEING ABLE TO GRAB AND TAKE OFF HIS OXYGEN TUBE AND MULT ATTEMPTS TO TAKE OUT HIS TRACH. TRACH IS SHILEY #6, ON COOL AEROSOL. GTF VITAL AF BOLUS OF 300ML MAX Q6H (1200, 1800, 0000, 0600). IV ACCESS ON GANGA MIDLINE @TKO. SAFETY MEASURES IN PLACE. SITTER AT BEDSIDE. BED LOW, LOCKED, HOB ELEVATED, SIDE RAILS UP, CALL LIGHT AND BEDSIDE TABLE WITHIN REACH. WILL CONTINUE TO MONITOR Pt's CONDITION AND SAFETY THROUGHOUT THE NIGHT.
[2019-08-27 20:00] VITALS: BP 109/58
[2019-08-27] MEDS: ENOXAPARIN SODIUM 40 MG/0.4 ML DISP.SYRIN SQ SCH (21:45)
[2019-08-28 04:00] VITALS: BP 122/67
[2019-08-28] MEDS: ERYTHROMYCIN ETHYLSUCCINATE 200 MG/5 ML SUSPENSION GT SCH ×4 (06:12→17:22)
[2019-08-28] MEDS: LORAZEPAM INJ 2 MG/ML VIAL IV PRN (06:12)
[2019-08-28 06:39] LABS: BASOPHILS # (AUTO) 0.1 /CMM (0.0-0.2); BASOPHILS % (AUTO) 1.1 % (0.0-2.0); EOSINOPHILS % (AUTO) 6.7 % (0.0-6.0); HEMATOCRIT 29 % (39-51); HEMOGLOBIN 9.8 g/dL (13.5-17.5); LYMPHOCYTES # (AUTO) 2.3 /CMM (0.8-4.8); LYMPHOCYTES % (AUTO) 17.1 % (20.0-44.0); MEAN CORPUSCULAR HGB CONC 33 g/dl (31.0-36.0); MEAN CORPUSCULAR VOLUME 94 fL (80-96); MONOCYTES # (AUTO) 0.8 /CMM (0.1-1.30); MONOCYTES % (AUTO) 5.5 % (2.0-12.0); NEUTROPHILS # (AUTO) 9.5 /CMM (1.8-8.9); NEUTROPHILS % (AUTO) 69.6 % (43.0-81.0); PLATELET COUNT (AUTO) 572 /CMM (150-450); RED BLOOD CELL COUNT(AUTO) 3.13 MIL/uL (4.5-6.0); WHITE BLOOD COUNT (AUTO) 13.7 K/uL (4.3-11.0)
[2019-08-28 07:06] LABS: CALCIUM, SERUM 9.5 mg/dL (8.5-10.1); CREATININE 0.6 mg/dL (0.6-1.3); MAGNESIUM 1.7 mg/dL (1.8-2.4); POTASSIUM 4.3 mmol/L (3.5-5.1)
--- NOTE | 2019-08-28 07:30 | NUR ---
MS RN NOTES PATIENT IN BED AWAKE, NON VERBAL. NO ACUTE DISTRESS NOTED. BREATHING UNLABORED. NO SOB NOTED. SAFETY MEASURES IN PLACE. SITTER AT BEDSIDE. ON BILATERAL SOFT WRIST RESTRAINTS FOR SAFETY CHECKED WITH GOOD CIRCULATION.WILL CONTINUE TO MONITOR ACCORDINGLY.
--- NOTE | 2019-08-28 07:40 | NUR ---
RN CLOSING NOTES NO SIGNIFICANT CHANGES IN Pt's CONDITION. Pt REMAINS STABLE PER BASELINE. NO S/S OF ACUTE DISTRESS OR SEVERE SOB NOTED DURING THE SHIFT. ALL NEEDS MET AND ATTENDED TO. SAFETY MEASURES IN PLACE. SITTER AT BEDSIDE. ON ILEANA SOFT WRIST RESTRAINTS FOR SAFETY. ENDORSED TO DAYSHIFT RN FOR Pt's MARCIA.
[2019-08-28] MEDS: BUDESONIDE RESPULE INH 0.5 MG/2 ML AMPUL.NEB IH SCH (07:43)
[2019-08-28] MEDS: IPRATROPIUM NEB FS 0.5 MG/2.5 ML AMPUL.NEB IH SCH (07:43)
[2019-08-28] MEDS: LACTOBACILLUS RHAMNOSUS GG 1 EACH CAP.SPRINK GT SCH ×2 (08:52→16:29)
[2019-08-28] MEDS: LEVETIRACETAM SOL (5 ML) 100 MG/ML UDC PO SCH (08:52)
[2019-08-28] MEDS: LINEZOLID 600 MG TABLET PO SCH (08:53)
[2019-08-28] MEDS: clonazePAM 0.5 MG TABLET GT SCH ×2 (08:53→16:29)
[2019-08-28] MEDS: ASCORBIC ACID 500 MG TABLET GT SCH (08:53)
[2019-08-28] MEDS: METOCLOPRAMIDE HCL 10 MG TABLET GT SCH ×3 (08:53→16:30)
[2019-08-28] MEDS: OXCARBAZEPINE 150 MG TABLET GT SCH ×3 (08:53→16:30)
[2019-08-28] MEDS: METOPROLOL TARTRATE 25 MG TABLET GT SCH ×2 (08:54→16:31)
[2019-08-28] MEDS: CLOTRIMAZOLE 1% 15 GM TUBE TP SCH ×2 (08:55→16:31)
[2019-08-28] MEDS: Magnesium 1GM/D5W 100ML PREMIX 100 ML IV SCH ×2 (10:26→11:35)
[2019-08-28] MEDS ORDERED: CEFE2FRO IV (11:00)
[2019-08-28] MEDS ORDERED: CLON0.5T4 GT (11:00)
[2019-08-28] MEDS ORDERED: Linezolid PO (11:00)
--- NOTE | 2019-08-28 11:57 | NUR ---
MS RN NOTES FOLLOWED UP WITH PHARMACY REGARDING MAXIPIME IV STILL NOT AVAILABLE ON THE FLOOR YET, SAID THEY WILL SEND IT TO THE FLOOR
[2019-08-28 12:00] VITALS: BP 118/76
[2019-08-28] MEDS: CEFEPIME 2 GM in IV D5W 100 ML IV SCH (12:17)
[2019-08-28] MEDS: VITAL AF 1.2 1,000 ML BOTTLE GT PRN (12:55)
[2019-08-28 16:31] VITALS: BP 111/58
--- NOTE | 2019-08-28 18:07 | NUR ---
MS SLATE ROOFER NOTES PATIENT DISCHARGE TO ALL [facility], REPORT GIVEN TO LAW ARRIAGA. PATIENT AWAKE, NON VERBAL APPEARS CALL AT THIS TIME. NO ACUTE DISTRESS NOTED. BREATHING UNLABORED. NO SOB NOTED. GT TUBE INTACT. WOODALL CATHETER INTACT DRAINING WELL. KEPT LEFT UPPER ARM MIDLINE PATENT AND INTACT SECURED WITH TRANSPARENT DRESSING, PATIENT TO CONTINUE IV ANTIBIOTIC AT [facility]. DISCHARGE INSTRUCTIONS HANDED OVER TO EMT PERSONNEL [facility] ALL BELONGINGS ACCOUNTED FOR. NEEDS ATTENDED AND ANTICIPATED. KEPT CLEAN DRY AND COMFORTABLE. PICKED UP VIA AMBULANCE IN A GURNEY ACCOMPANIED BY 2 EMT PERSONNEL IN STABLE CONDITION.
== END 2019-08-28 18:10 | DRG 720 ==
LOC: ER 07:50 → TELE1 14:34 → MEDSG1 08-21 09:57
PROVIDERS: ADMIT Nurse Practitioner Acute Care; ATTEND Nurse Practitioner Acute Care
PROC: 05H633Z Insertion of Infusion Device into Left Subclavian Vein, Percutaneous Approach (ICD-10-PCS; principal; 2019-08-13)
PROC: 0W993ZX Drainage of Right Pleural Cavity, Percutaneous Approach, Diagnostic (ICD-10-PCS; 2019-08-19)
DX: A41.9 Sepsis, unspecified organism (principal); N17.0 Acute kidney failure with tubular necrosis; Z99.11 Dependence on respirator [ventilator] status; J90 Pleural effusion, not elsewhere classified; E46 Unspecified protein-calorie malnutrition; J96.11 Chronic respiratory failure with hypoxia; R53.2 Functional quadriplegia; J18.9 Pneumonia, unspecified organism; Z93.0 Tracheostomy status; E87.0 Hyperosmolality and hypernatremia; J47.0 Bronchiectasis with acute lower respiratory infection; G40.909 Epilepsy, unspecified, not intractable, without status epilepticus; G80.9 Cerebral palsy, unspecified; Z93.1 Gastrostomy status; D64.9 Anemia, unspecified; E83.39 Other disorders of phosphorus metabolism; E87.6 Hypokalemia; K59.09 Other constipation; M24.571 Contracture, right ankle; M24.572 Contracture, left ankle; R13.10 Dysphagia, unspecified; E88.09 Other disorders of plasma-protein metabolism, not elsewhere classified; Z68.1 Body mass index [BMI] 19.9 or less, adult; F63.9 Impulse disorder, unspecified
CPT/HCPCS: 31720; 36415; 36600; 71045-TC; 71250-TC; 76770-TC; 76942-TC; 80048-TC; 80053-TC; 80061-TC; 80076-TC; 80202-TC; 81000-TC; 82550-TC; 82570-TC; 82962-TC; 83540-TC; 83690-TC; 83735-TC; 83970; 84100-TC; 84155; 84155-TC; 84165; 84300-TC; 84443-TC; 85025-TC; 85610-TC; 85652-TC; 86225; 86235; 86706; 86803; 87040-TC; 87070-TC; 87075-TC; 87081-TC; 87086-TC; 87102-TC; 87116; 87206; 87340; 88112-TC; 88305-TC; 88312-TC; 89051-TC; 93307-TC; 94640-TC; 94760-TC; 94762-TC; 94799-TC; A4623; A7526; G0378; J0692; J1650; J1953; J2060; J2543; J3370; J3475; J3480; J3490; J7030; J7040; J7060; J8597